=== PATIENT | male | born 1950 | race Caucasian/White ===

== ENCOUNTER → 2024-03-10 11:05 | Outpatient (REF) | payer MEDICARE, OTHER, SELFPAY ==
[2024-03-10 12:24] LABS: Urine Albumin 1+ (Neg - Trace); Urine Bilirubin Negative (Negative); Urine Character Very Cloudy (Clear); Urine Color Yellow; Urine Glucose Negative (Negative); Urine Ketone Negative (Negative); Urine Leukocyte 2+ (Negative); Urine Nitrite Negative (Negative); Urine Occult Blood 3+ (Negative); Urine Specific Gravity 1.015 (<1.030); Urine Urobilinogen Negative (Neg - 1+)
[2024-03-10 12:29] LABS: Hemoglobin 10.6 g/dL (13.0-18.0); Mean Corp Hgb Conc. 31.2 g/dL (33.0-37.0); Mean Corpuscular Hgb 26.9 pg (27.0-31.0); Mean Corpuscular Volume 86.3 fL (80.0-94.0); Mean Platelet Volume 11.6 fL (7.4-10.4); Platelet Count 136 10^3/uL (130-400); Red Blood Cell Count 3.94 10^6/uL (4.70-6.10); Red Cell Dist. Width 16.6 % (11.5-14.5); White Blood Cell Count 5.5 10^3/uL (4.8-10.8)
[2024-03-10 12:56] LABS: Urine Red Blood Cell 26-30 /HPF (0-2)
[2024-03-10 12:57] LABS: Urine Bacteria Moderate (Negative); Urine White Cell 50-60 /HPF (0-5)
[2024-03-10 15:10] LABS: ALT (SGPT) < 10 U/L (0-50); AST (SGOT) 17 U/L (17-59); Albumin 4.6 g/dl (3.5-5.0); Alkaline Phosphatase 99 U/L (38-126); Blood Urea Nitrogen 23 mg/dl (9-20); Calcium 9.1 mg/dl (8.4-10.2); Carbon Dioxide 23 mmol/L (22-30); Chloride 107 mmol/L (98-107); Glucose 137 mg/dl (70-99); HDL Cholesterol 24 mg/dl; LDL Cholesterol, Calculated 26 mg/dl; Potassium 4.4 mmol/L (3.5-5.1); Sodium 141 mmol/L (135-145); Total Bilirubin 1.2 mg/dl (0.2-1.3); Total Cholesterol 88 mg/dl (50-199); Total Protein 7.2 g/dl (6.3-8.2); Triglyceride 192 mg/dl (10-149); Very Low Density Lipoprotein 38 mg/dl (0-30)
[2024-03-11 09:08] LABS: Glycohemoglobin (HgbA1c) 5.2 % (4.0-5.6)
== END ==
LOC: REG 11:05
PROVIDERS: ATTENDING PHYSICIAN Specialist; FAMILY PHYSICIAN Family Medicine
DX: Z94.0 Kidney transplant status (principal); E11.21 Type 2 diabetes mellitus with diabetic nephropathy
CPT/HCPCS: 36415; 80053; 80061; 80197; 81003; 81015; 83036; 85027

== ENCOUNTER → 2024-04-02 09:37 | Outpatient (REF) | payer MEDICARE, OTHER, SELFPAY ==
[2024-04-02 12:30] LABS: Urine Albumin 1+ (Neg - Trace); Urine Bilirubin Negative (Negative); Urine Character Clear (Clear); Urine Color Yellow; Urine Glucose Negative (Negative); Urine Ketone Negative (Negative); Urine Leukocyte 1+ (Negative); Urine Nitrite Negative (Negative); Urine Occult Blood 3+ (Negative); Urine Specific Gravity 1.015 (<1.030); Urine Urobilinogen Negative (Neg - 1+)
[2024-04-02 12:32] LABS: Hematocrit 30.4 % (39.0-52.0); Hemoglobin 9.5 g/dL (13.0-18.0); Mean Corp Hgb Conc. 31.3 g/dL (33.0-37.0); Mean Corpuscular Hgb 26.5 pg (27.0-31.0); Mean Corpuscular Volume 84.9 fL (80.0-94.0); Mean Platelet Volume 11.9 fL (7.4-10.4); Platelet Count 150 10^3/uL (130-400); Red Blood Cell Count 3.58 10^6/uL (4.70-6.10); Red Cell Dist. Width 17.5 % (11.5-14.5); White Blood Cell Count 4.4 10^3/uL (4.8-10.8)
[2024-04-02 12:48] LABS: Urine Red Blood Cell 40-50 /HPF (0-2); Urine Squamous Cell 16-20 /LPF (Few)
[2024-04-02 12:49] LABS: Urine Bacteria Few (Negative)
[2024-04-02 12:55] LABS: Blood Urea Nitrogen 21 mg/dl (9-20); Calcium 9.1 mg/dl (8.4-10.2); Carbon Dioxide 25 mmol/L (22-30); Chloride 105 mmol/L (98-107); Glucose 136 mg/dl (70-99); Iron 83 ug/dl (49-181); Potassium 4.4 mmol/L (3.5-5.1); Sodium 140 mmol/L (135-145)
[2024-04-02 13:04] LABS: Percent Saturation 26 % (20-50); Total Iron Binding Capacity 314 ug/dl (261-462)
== END ==
LOC: HWRAD 09:37
PROVIDERS: ATTENDING PHYSICIAN Specialist; FAMILY PHYSICIAN Family Medicine
DX: I10 Essential (primary) hypertension (principal); E11.22 Type 2 diabetes mellitus with diabetic chronic kidney disease; N17.9 Acute kidney failure, unspecified; R31.9 Hematuria, unspecified; D69.6 Thrombocytopenia, unspecified
CPT/HCPCS: 36415; 76857; 80048; 81003; 81015; 82728; 83540; 83550; 85027

== ENCOUNTER → 2025-02-01 11:34 | Outpatient (REF) | payer MEDICARE, OTHER, SELFPAY | LOC: RAD 11:34 | PROVIDERS: ATTENDING PHYSICIAN Family Medicine | DX: H40.052 Ocular hypertension, left eye (principal) | CPT/HCPCS: 73030 ==

== ENCOUNTER 2025-02-12 15:13 | Inpatient (IN) | payer MEDICARE, OTHER, SELFPAY ==
[2025-02-12] VITALS (20 sets, daily range): BP systolic 84–137; BP diastolic 45–118; BMI 24.0; BMI 23.2
[2025-02-12] MEDS: CARDIZEM 10 MG IV (11:20)
[2025-02-12 11:33] LABS: Hematocrit 28.8 % (39.0-52.0); Hemoglobin 9.1 g/dL (13.0-18.0); Mean Corp Hgb Conc. 31.6 g/dL (33.0-37.0); Mean Corpuscular Volume 86.7 fL (80.0-94.0); Nucleated Red Blood Cells % 0 % (-); Platelet Count 125 10^3/uL (130-400); Red Cell Dist. Width 16.7 % (11.5-14.5)
[2025-02-12] MEDS: CARDIZEM 125 IV (11:33)
[2025-02-12 12:02] LABS: ALT (SGPT) < 10 U/L (0-50); AST (SGOT) 23 U/L (17-59); Albumin 4.6 g/dl (3.5-5.0); Alkaline Phosphatase 79 U/L (38-126); Blood Urea Nitrogen 25 mg/dl (9-20); Calcium 8.7 mg/dl (8.4-10.2); Carbon Dioxide 21 mmol/L (22-30); Chloride 111 mmol/L (98-107); Estimated Creatinine Clearance 39 ml/min; Glucose 232 mg/dl (70-99); Magnesium 2.1 mg/dl (1.6-2.3); Potassium 5.6 mmol/L (3.5-5.1); Sodium 140 mmol/L (135-145); Total Protein 7.3 g/dl (6.3-8.2); eGFR 39.50
[2025-02-12 12:26] LABS: Troponin I 2.530 ng/ml
[2025-02-12 12:31] LABS: TSH 3.05 uIU/ml (0.47-4.68)
--- NOTE | 2025-02-12 12:52 | ED.GENMED ---
History of Present Illness
General
Chief Complaint: Cardiac Symptoms
Source: patient and spouse
Exam Limitations: none
Time Seen by Provider: 02/12/25 10:48
History of Present Illness
History of Present Illness:
Note:
CHIEF COMPLAINT(S)
Pain in the left clavicle radiating down the arm to the chest and up the neck with an inability to alleviate the pain.
HISTORY OF PRESENT ILLNESS
The patient is a 74-year-old male with a complex history, including heart disease and kidney transplantation, presenting with pain in the left clavicle that radiates down the arm to the chest and up the neck. Symptoms have been chronic, with
shoulder pain persisting for a couple of years, but acutely worsened around midnight last night and have remained since. The patient describes the pain as extremely sharp, located under the scapula towards the spine, and it does not subside with
inactivity or rest. He has attempted to alleviate the pain with Tylenol without success. Historical episodes of similar pain involved chest discomfort and arm pain, once causing concern for a myocardial infarction, for which nitroglycerin was
administered without relief. 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
Clavicular pain is stated not to exacerbate with deep breaths. On presentation, the patients heart rate is notably elevated at 140 beats per minute. The patients cardiac history is significant, including five coronary artery bypass grafts and four
stents, with regular follow-up care by a ship's cook. He voices receiving recent laboratory work as part of his kidney transplant management, showing concerning creatinine levels and a hemoglobin of 8.6 g/dL. The patient is on numerous cardiac and
transplant-related medications, indicating a poorly controlled atrial fibrillation contributing to irregular heartbeat observed today. The patient denies any new symptoms of dyspnea or increased breathlessness.
EXTERNAL RECORDS REVIEWED
Patient has had recent laboratory work involving hemoglobin and creatinine levels due to kidney transplant history. Current reports indicate elevated creatinine, and the patients medications have been adjusted under human resources safety manager supervision.
CHRONIC MEDICAL CONDITIONS SIGNIFICANTLY AFFECTING CARE
1. Atrial fibrillation
2. Coronary artery disease
3. History of coronary artery bypass grafts and stents
4. Kidney transplant recipient
ALLERGIES
Penicillin (noted as a historic reaction)
MEDICATIONS
- Humalog
- Lantus
- Verapamil
- Apixaban
- Tacrolimus
- Gabapentin
- Carvedilol
- Pantoprazole
- Rosuvastatin
- Aspirin 81 mg
- Isosorbide
PHYSICAL EXAM
General: Alert, oriented, no acute distress.
Head and Eyes: Enucleated left eye, extraocular muscles intact in the right eye. Normocephalic, atraumatic.
Cardiovascular: Tachycardic, irregular heart rhythm.
Respiratory: Clear bilateral lung sounds, non-labored respirations.
Gastrointestinal: Abdomen non-distended.
Musculoskeletal: No tenderness on palpation near the scapular area.
Neurologic: Cranial nerves grossly intact.
Extremities: No edema, no cyanosis.
Psychiatric: Cooperative, appropriate mood and affect.
PROBLEM LIST
- Acute: Acute exacerbation of chronic shoulder/clavicular pain, tachycardia.
- Chronic: Atrial fibrillation, coronary artery disease, history of coronary interventions, kidney transplant status.
PLAN
1. Perform laboratory investigations including cardiac enzymes and kidney function tests.
2. Obtain a chest X-ray to rule out pulmonary causes of the pain, like a pneumothorax.
3. Administer intravenous medication (diltiazem) to control tachycardia and observe if symptomatology improves.
4. Considerations for cardiac monitoring and possible consultation with the patients ship's cook.
5. Evaluate current labs and medication levels, particularly tacrolimus, given transplant history.
DIFFERENTIAL DIAGNOSIS
The Differential Diagnosis includes, in no particular order and is not limited to:
1. Myocardial ischemia or infarction
2. Costochondritis
3. Musculoskeletal strain or tear
4. Pericarditis
5. Pulmonary embolism
6. Angina or atypical chest pain
7. Congestive heart failure exacerbation
8. Aortic dissection
9. Intercostal neuralgia
CARE-UPDATE
02/12/25 - 12:45
Noted troponin level at 2.5; will repeat EKG for further assessment.
CARE-UPDATE
02/12/25 - 12:53
Patient reports complete resolution of pain. Heart rate management is ongoing, currently stabilized with the assistance of an external cardio drip. Consultation with cardiology is in progress to further evaluate and manage the cardiac condition.
EKG
My independent EKG interpretation is:
- Rhythm: Atrial fibrillation with rapid ventricular response (RVR)
- Heart Rate: Tachycardic at 135 bpm
- ST Changes: ST depression in the lateral leads
- Conduction: Non-specific intraventricular conduction delay
- [place]: Left axis deviation
Disposition:
SUMMARY OF ENCOUNTER
The patient, a 74-year-old male with an extensive cardiac history and a history of kidney transplantation, presented with worsening back and chest pain. On arrival, he was tachycardic and noted to be in atrial fibrillation. He reported taking his
last dose of apixaban at home. His symptoms improved with a diltiazem drip which also helped in controlling his heart rate. The patient was found to be asymptomatic upon reassessment. His comprehensive cardiac history includes significant coronary
artery disease with past interventions, including stenting of the radial artery graft. A previously existing recommendation was for triple therapy with aspirin, clopidogrel, and apixaban. A cardiology consultation was sought for further
anticoagulation management.
DISPOSITION
Admit
ASSESSMENT
The patients symptoms were likely due to atrial fibrillation with a rapid ventricular response, exacerbated by his underlying coronary artery disease and recent initiation of treatment for an atrial fibrillation disorder.
EMERGENCY TREATMENTS ADMINISTERED
Diltiazem drip was administered to control the heart rate.
MANAGEMENT OF THE PATIENTS CARE WAS DISCUSSED WITH
The patients case was discussed with a ship's cook to evaluate the need for further anticoagulation and a hospitalist to arrange admission.
REASSESSMENT
The patient reported complete resolution of symptoms, and heart rate control was successfully achieved with a diltiazem drip.
PLAN
The patient will be admitted for further evaluation and management of his atrial fibrillation and to ensure stable cardiac function, considering his complex medical history.
INDEPENDENT REVIEW OF LABS AND INTERPRETATION OF TESTS
- My independent review of cardiac catheterization records from November 2022 shows [place] triple vessel disease with successful stenting of the radial artery graft at OM2.
- My independent EKG interpretation is atrial fibrillation with rapid ventricular response; tachycardic at 135 bpm, ST depression in lateral leads, with non-specific intraventricular conduction delay and left axis deviation.
PATIENT EDUCATION AND COUNSELING
The patient was informed about the nature of his condition, the role of the medications administered, and the need for close monitoring of his cardiac status.
MEDICATION RECONCILIATION
- Apixaban, taken at home.
- Diltiazem drip administered in the emergency department.
MEDICAL DECISION MAKING
- Number and Complexity of Problems Addressed: Chronic conditions affecting care including atrial fibrillation, coronary artery disease, history of coronary interventions, and kidney transplant status. Differential diagnosis included myocardial
ischemia or infarction, costochondritis, musculoskeletal strain or tear, pericarditis, angina or atypical chest pain, congestive heart failure exacerbation, aortic dissection, and intercostal neuralgia.
- Data:
Category 1
- External record reviewed regarding previous cardiac catheterization for coronary artery disease.
- My independent interpretation of the EKG, showing atrial fibrillation with rapid ventricular response.
Category 3
- Discussion of management with a ship's cook and hospitalist for admission and anticoagulation evaluation.
RISK
Given the complexities of the patients cardiac history, ongoing anticoagulation therapy, and recent cardiac intervention, the risk is high. However, with resolving symptoms and stable conditions, the plan for admission is prudent to ensure
comprehensive management.
DIAGNOSIS
- Atrial fibrillation with rapid ventricular response (I48.91)
- Coronary artery disease with history of interventions (I25.10)
- Recent initiation of treatment for atrial fibrillation disorder (Z79.02)
Past History
Past History
ED Past Medical History: CAD, Hypercholesterolemia, IDDM, Renal failure, Hypothyroidism and Other (Kidney transplant)
ED Past Surgical History: Appendectomy, Cardiac, Urological (Kidney transplant) and Other (Left eye surgery, AV fistula)
Social History
Tobacco: Non-smoker
Living: with family
Phy Exam
Physical Exam
Physical Exam:
.
Course
Orders/Labs/Results
Orders:
Orders
02/12/25 10:33
Electrocardiogram (*1) Urgent
Reason for Study: Bradycardia / Tachycardia
02/12/25 10:34
EKG- Treatment ONCE
02/12/25 11:02
Diltiazem 125 mg/125 ml Nss [Cardizem] 125 mg in 125 ml IV NOW
Initial dose in mg/hr, then titrate:: 5
Titrate to keep:: Heart rate 80-100 bpm
Titrate by mg/hr:: 5 mg/hr
Frequency of titrations (minutes):: 15
Maximum dose in mg/hr:: 15
Diltiazem HCl [Cardizem] 10 mg IV NOW STA
CR Chest - 2 Views Urgent
Comment:
Reason For Exam: L back pain/CP
02/12/25 11:16
Complete Blood Count/With Diff Urgent
Comprehensive Metabolic Panel Urgent
Magnesium Urgent
TSH Urgent
Troponin I Urgent
02/12/25 12:43
Electrocardiogram (*1) Urgent
Reason for Study: Chest Pain
EKG- Treatment ONCE
Abnormal Lab Results
02/12/25
11:16
WBC 4.4 L 10^3/uL
(4.8-10.8)
RBC 3.32 L 10^6/uL
(4.70-6.10)
Hgb 9.1 L g/dL
(13.0-18.0)
Hct 28.8 L %
(39.0-52.0)
MCHC 31.6 L g/dL
(33.0-37.0)
RDW 16.7 H %
(11.5-14.5)
Plt Count 125 L 10^3/uL
(130-400)
Monocytes % 11.8 H %
(1.7-9.3)
Potassium 5.6 H mmol/L
(3.5-5.1)
Chloride 111 H mmol/L
(98-107)
Carbon Dioxide 21 L mmol/L
(22-30)
BUN 25 H mg/dl
(9-20)
Creatinine 1.8 H mg/dL
(0.7-1.3)
Glucose 232 H mg/dl
(70-99)
Troponin I 2.530 H* ng/ml
02/12/25 11:16
02/12/25 11:16
Vital Signs
Initial and Last Documented VS:
Initial Vital Signs
Temp Pulse Resp BP Pulse Ox
98.8 F 138 16 120/64 98
02/12/25 10:31 02/12/25 10:31 02/12/25 10:31 02/12/25 10:31 02/12/25 10:31
Last Documented Vital Signs
Temp Pulse Resp BP Pulse Ox
98.8 F 88 14 101/51 98
02/12/25 10:31 02/12/25 12:45 02/12/25 12:45 02/12/25 12:30 02/12/25 12:45
*Pulse Oximetry
SaO2: 98
Oxygen Mode of Delivery: Room air
Patient hypoxic: no
*Critical Care Note
Total Time (30-74mins, 75-104mins- exclusive of procedures): 40 minutes
Data Reviewed
Source: patient and spouse
ED Attending Note
-
Portions of this chart may have been created with voice recognition software.� Occasional wrong word or��sound alike� substitutions may have occurred due to the inherent limitations of voice recognition software.
Discharge Plan
Departure
Patient Disposition: Admit
Date of Disposition: 02/12/25
Time of Disposition: 12:52
Admit to: Telemetry
Presentation/result/management discussed w/ accepting MD/DO: Hospitalist
Discharge Problem:
Acute non-ST elevation myocardial infarction (NSTEMI), Atrial fibrillation with rapid ventricular response, Chronic kidney disease
Prescriptions:
No Action
dorzolamide-timolol 22.3-6.8 mg/mL Drops
1 drp LEFT EYE BID
insulin lispro [Humalog U-100 Insulin] 100 unit/mL Solution
1 sliding scale dose SC AC
rosuvastatin 20 mg Tablet
20 mg PO DAILY
Dulera 200-5 mcg/actuation Hfa Aerosol Inhaler
2 puff INHALATION R BIDPRN PRN (Reason: cough)
Eliquis 5 mg Tablet
5 mg PO BID
PreserVision AREDS-2 250-90-40-1 mg Tablet,Chewable
1 tab PO BID
tacrolimus [Prograf] 1 mg Capsule
1 mg PO Q12H Qty: 0
gabapentin 300 mg capsule
300 mg PO TID
gabapentin 600 mg Tablet
300 mg PO HSPRN PRN (Reason: mild pain)
aspirin 81 mg Tablet
81 mg PO DAILY
pantoprazole [pantoprazole] 40 mg tablet,delayed release (DR/EC)
40 mg PO DAILY Qty: 90 10RF
acetaminophen [Tylenol] 325 mg Tablet
975 mg PO DAILYPRN PRN (Reason: mild pain)
carvedilol [Coreg] 6.25 mg Tablet
6.25 mg PO BID
cetirizine [Zyrtec] 10 mg Tablet
10 mg PO DAILY
isosorbide mononitrate [Imdur] 30 mg Tablet Extended Release 24 Hr
30 mg PO DAILY
prednisolone acetate 1 % Drops,Suspension
3 drp LEFT EYE TID
levothyroxine [Synthroid] 50 mcg Tablet
50 mcg PO HS
zolpidem [Ambien] 10 mg Tablet
10 mg PO HSPRN PRN (Reason: sleep)
mycophenolate sodium 180 mg tablet,delayed release (DR/EC)
540 mg PO BID
insulin glargine [Lantus Solostar U-100 Insulin] 100 unit/mL (3 mL) Insulin Pen
2 unit SC HS
Referrals:
Alphonso Sheffield MD [Family Provider, Family Practice]
Interventions
Interventions:
*Risk Screen - Suicide Last Done: 02/12/25 10:31
*General Assessment Last Done: 02/12/25 11:17
*Neglect/Abuse Screening Last Done: 02/12/25 10:31
*ED- Fall Risk Assessment Last Done: 02/12/25 11:17
ED- Cardiac Assessment Last Done: 02/12/25 11:17
ED- Pulmonary Assessment Last Done: 02/12/25 11:52
Discharge Date and Time
Print Language: MALAY
--- NOTE | 2025-02-12 12:55 | CON.CAR ---
Addendum entered and electronically signed by Kirk Eason MD 02/12/25 15:41:
Patient seen and examined in collaboration with WINK CUTTER OPERATOR; agree with below.
- 74-year-old male with coronary artery disease status-post remote CABG (2000), radial artery graft stent (11/2022), paroxysmal atrial fibrillation (on Eliquis), hypertension, hyperlipidemia, diabetes, and renal transplant/CKD (2017) presenting with
chest and left shoulder pain. Initial set of troponin was 2.53, concerning for an NSTEMI.
- The patient will ultimately need to undergo cardiac catheterization--timing yet to be determined; he is currently chest pain-free.
- The patient took his typical dose of Eliquis this morning; will hold off on starting heparin for now--plan to start this evening, but will initiate heparin drip sooner, if significant increase in troponin or if patient develops recurrent anginal
symptoms.
- Consult nephrology for renal dysfunction and electrolyte abnormalities; renal status ideally should be tuned up prior to cardiac catheterization.
- Will obtain an echocardiogram today.
- quality assurance monitor.
- Will follow.
Original Note:
Consultation
Consultation Request
Date/Time Consultation Requested: 02/12/25 1253
Date/Time Consultation Performed: 02/12/25 1256
Requesting Provider: Dr. Mitchell
Performing Provider: Sheila TUCEKR for Dr. Eason
Reason for Consultation: abnormal troponin, AFIB RVR, CP
Medical History
-
Chief Complaint: chest discomfort
History of Present Illness:
74 y/o male with CAD with hx CABG 2000 and stenting radial artery graft 11/2022, PAF on Eliquis, hypertension, dyslipidemia, DM, renal transplant 2017, and CKD3b (Dr. Reyes), who is here for left chest and shoulder pain that started last night around
midnight. Chest felt like dull ache, shoulder felt like stabbing. He was in AFIB with RVR on arrival. His symptoms resolved with rate control on IV diltiazem. Troponin is 2.53. He has no CP at the time of my assessment. He takes daily aspirin and
took it already this AM and also took Eliquis this AM. He is in no distress and at bedside.
Past Medical History
Past Medical History: Arrhythmias, CAD, HTN, Hypercholesterolemia, NIDDM, Renal Failure and Other (as above)
Social History
Tobacco: Former Smoker
Personal:
Living: With Family
Family History
Family History: Reviewed & Not Pertinent
Allergies / Home Medications
Allergy/AdvReac Type Severity Reaction Status Date / Time
Penicillins Allergy Hives A Verified 02/12/25 10:33
TEENAGER
pollen extracts AdvReac Intermediate Nasal Verified 02/12/25 10:33
congestion
- seasonal
�Medication �Instructions �Recorded �Confirmed �Type
apixaban 5 mg tablet (Eliquis) 5 mg PO BID Blood clot 03/25/22 02/12/25 History
prevention/tx
dorzolamide 22.3 mg-timolol 6.8 1 drp LEFT EYE BID Eye condition 03/25/22 02/12/25 History
mg/mL eye drops
insulin lispro 100 unit/mL 1 sliding scale dose SC AC Diabetes 03/25/22 02/12/25 History
subcutaneous solution (Humalog
U-100 Insulin)
mometasone-formoterol HFA 200 2 puff inhalation R BIDPRN PRN 03/25/22 02/12/25 History
mcg-5 mcg/actuation aerosol cough
inhaler (Dulera)
rosuvastatin 20 mg tablet 20 mg PO DAILY High cholesterol 03/25/22 02/12/25 History
vit C 250 mg-E 90 mg-zinc 40 1 tab PO BID Supplement 03/25/22 02/12/25 History
mg-copper 1 [id number] chew
tablet (PreserVision AREDS-2)
tacrolimus 1 mg capsule, 1 mg PO Q12H ##0 03/30/22 02/12/25 History
immediate-release (Prograf)
aspirin 81 mg tablet 81 mg PO DAILY 11/13/22 02/12/25 History
gabapentin 300 mg capsule 300 mg PO TID 11/13/22 02/12/25 History
gabapentin 600 mg tablet 300 mg PO HSPRN PRN mild pain 11/13/22 02/12/25 History
pantoprazole 40 mg tablet,delayed 40 mg PO DAILY #90 tabs 11/13/22 02/12/25 Rx
release
acetaminophen 325 mg tablet 975 mg PO DAILYPRN PRN mild pain 02/12/25 02/12/25 History
(Tylenol)
carvedilol 6.25 mg tablet (Coreg) 6.25 mg PO BID 02/12/25 02/12/25 History
cetirizine 10 mg tablet (Zyrtec) 10 mg PO DAILY 02/12/25 02/12/25 History
insulin glargine 100 unit/mL (3 2 unit SC HS 02/12/25 02/12/25 History
mL) subcutaneous pen (Lantus
Solostar U-100 Insulin)
isosorbide mononitrate 30 mg 30 mg PO DAILY 02/12/25 02/12/25 History
tablet,extended release 24 hr
levothyroxine 50 mcg tablet 50 mcg PO HS 02/12/25 02/12/25 History
(Synthroid)
mycophenolate sodium 180 mg 540 mg PO BID 02/12/25 02/12/25 History
tablet,delayed release
prednisolone acetate 1 % eye 3 drp LEFT EYE TID 02/12/25 02/12/25 History
drops,suspension
zolpidem 10 mg tablet (Ambien) 10 mg PO HSPRN PRN sleep 02/12/25 02/12/25 History
Review of Systems
-
History Source: Patient
All other systems: Negative unless noted
Cardiac: Chest Pain
Musculoskeletal: Other (shoulder pain)
Physical Exam
Vital Signs
Temp Pulse Resp BP Pulse Ox
98.8 F 88 14 101/51 98
02/12/25 10:31 02/12/25 12:45 02/12/25 12:45 02/12/25 12:30 02/12/25 12:45
Lab Results
02/12/25 11:16
02/12/25 11:16
Troponin I 2.530 ng/ml H* 02/12/25 11:16
Physical Exam
General: Well Developed and Well Nourished
HEENT: Normocephalic and Anicteric
Respiratory: Clear and Non Labored Respirations
Cardiac: Irregular Rhythm
Musculoskeletal: No Edema
Skin: Warm and Dry
Neuro: AO x 3
Psych: Calm
Impression / Plan
-
NSTEMI:
-this diagnosis is threat to life
-known CAD with CABG and stenting
-trend trops to peak, obtain echo
-CP free at present
-start heparin tonight- this requires intensive monitoring. Hold Eliquis.
-continue ASA, statin, BB
-plan for cath on Saturday, nephro consult
PAF:
-came in with AFIB with RVR
-agree with IV diltiazem, which requires intensive monitoring
-Hold Eliquis and start heparin tonight
CKD, hx renal transplant, hyperkalemia:
-nephro consulted
Data Reviewed
-
EKG: Tracing Personally Visualized and interpreted (AFIB 96 BPM)
Radiology: Report Reviewed by me (CXR: Stable mild blunting of the left lateral costophrenic angle, which is likely mild chronic pleural thickening. The lungs appear clear. Cardiac silhouette and vascular markings appear within normal limits.)
Medical Tests (Nuc Med, Echo etc): Report Reviewed by me (Cath 11/13/22: [place] triple-vessel occlusion with patent CONNOLLY-LAD, [id number], patent but diseased radial-OM2 and occluded SVG-diagonal bypass grafts. Successful stenting of multisegment
high-grade disease in radial artery graft to OM 2 with placement of total four drug-eluting stents.)
Labs: Labs Reviewed by me
Scores
GAUTAM for NSTEMI
Age >/= 65: Yes
>/=3 CAD risk factors-HTN,High Chol,Fam hx CAD,DM,Smoker: Yes
Known CAD (stenosis >/=50%): Yes
ASA use in past 7 days: Yes
Severe angina (>/= 2 episodes in 24 hrs): No
EKG ST Changes >/= 0.5mm: Yes
Positive cardiac marker: Yes
Score: 6
Risk at 14 days-mortality, new/recurrent PA, severe ischemia: High Risk- 41% Risk at 14 days- all cause mortality, new or recurrent PA, or severe recurrent ischemia requiring urgent revascularization
--- NOTE | 2025-02-12 13:10 | HPS.HSE ---
Family Physician
-
Family Physician: Alphonso Sheffield
Chief Complaint
-
left shoulder blade sharp in nature unable to move also with a dull ache in his left antecubital left forearm left chest into his left side of his neck
History of Present Illness
74-year-old male complaining of waking up at 12 AM with pain in his left shoulder blade sharp in nature unable to move also with a dull ache in his left antecubital left forearm left chest into his left side of his neck he states the pain was so bad
he had his bring him to the ER for evaluation on arrival he was noted to be in rapid A-fib with RVR heart rate 146 bpm he was given IV Cardizem drip which controlled his heart rate to 85 he states his pain dissipated however his troponin was
elevated at 2.53. He recalls having chest pain approximately 1 month ago he took 2 nitro without any relief he has had episodic left shoulder pain for months random in nature. He had history of CABG x 5 vessel in 2000 he reports taking his aspirin
81 mg today and Eliquis 5 mg this morning. He denies headache, blurred vision, dizziness, sore throat, fever, chills, shortness of breath, cough, abdominal pain, nausea, vomiting, diarrhea, urinary symptoms.
The patient has past medical history of CAD/CABG x 5 vessel 2000( CONNOLLY-LAD, [id number],), drug-eluting stent OM 2 11/13/2022, paroxysmal A-fib, HTN, HLD, DM2, diabetic neuropathy bilateral feet, renal transplant 2017, left arm AV fistula, chronic
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
Medical History
Past Medical History
Past Medical History: Reports Other
Additional Past Medical History:
CAD/CABG x 5 vessel 2000( CONNOLLY-LAD, [id number],)
drug-eluting stent OM 2 11/13/2022
paroxysmal A-fib
HTN
HLD
DM2
diabetic neuropathy bilateral feet
Renal transplant 2017
Right upper extremity AV fistula working, right lower extremity AV fistula not working
chronic anemia
GERD
hepatitis B
COPD
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
Past Surgical History: Reports Other
Additional Past Surgical History:
CABG x 5 vessel 2000
Detached retina repair left eye with chronic blindness
AV fistula 12/23/2023
Appendectomy
Kidney transplant 2016 [facility]
Social History
Tobacco: Non-smoker
Alcohol: None
Drug: None
Personal:
Living: With Family ( Fanny)
Employment: Retired
Family History
Family History: Other (Patient is adopted however did find out that mother had history of kidney disease mother side uncles CAD)
Allergies / Home Medications
Allergies reflects when Allergies were last updated in [employer].
Home Medications with original date entered in [employer]
Allergy/Medication List:
Allergies
Allergy/AdvReac Type Severity Reaction Status Date / Time
Penicillins Allergy Hives A Verified 02/12/25 10:33
TEENAGER
pollen extracts AdvReac Intermediate Nasal Verified 02/12/25 10:33
congestion
- seasonal
Home Medications
apixaban 5 mg tablet (Eliquis) 5 mg PO BID Blood clot prevention/tx 03/25/22
dorzolamide 22.3 mg-timolol 6.8 mg/mL eye drops 1 drp LEFT EYE BID Eye condition 03/25/22
insulin lispro 100 unit/mL subcutaneous solution (Humalog U-100 Insulin) 1 sliding scale dose SC AC Diabetes 03/25/22
mometasone-formoterol HFA 200 mcg-5 mcg/actuation aerosol inhaler (Dulera) 2 puff inhalation R BIDPRN PRN cough 03/25/22
rosuvastatin 20 mg tablet 20 mg PO DAILY High cholesterol 03/25/22
vit C 250 mg-E 90 mg-zinc 40 mg-copper 1 [id number] chew tablet (PreserVision AREDS-2) 1 tab PO BID Supplement 03/25/22
tacrolimus 1 mg capsule, immediate-release (Prograf) 1 mg PO Q12H ##0 03/30/22
aspirin 81 mg tablet 81 mg PO DAILY 11/13/22
gabapentin 300 mg capsule 300 mg PO TID 11/13/22
gabapentin 600 mg tablet 300 mg PO HSPRN PRN mild pain 11/13/22
pantoprazole 40 mg tablet,delayed release 40 mg PO DAILY #90 tabs 11/13/22
acetaminophen 325 mg tablet (Tylenol) 975 mg PO DAILYPRN PRN mild pain 02/12/25
carvedilol 6.25 mg tablet (Coreg) 6.25 mg PO BID 02/12/25
cetirizine 10 mg tablet (Zyrtec) 10 mg PO DAILY 02/12/25
insulin glargine 100 unit/mL (3 mL) subcutaneous pen (Lantus Solostar U-100 Insulin) 2 unit SC HS 02/12/25
isosorbide mononitrate 30 mg tablet,extended release 24 hr 30 mg PO DAILY 02/12/25
levothyroxine 50 mcg tablet (Synthroid) 50 mcg PO HS 02/12/25
mycophenolate sodium 180 mg tablet,delayed release 540 mg PO BID 02/12/25
prednisolone acetate 1 % eye drops,suspension 3 drp LEFT EYE TID 02/12/25
zolpidem 10 mg tablet (Ambien) 10 mg PO HSPRN PRN sleep 02/12/25
Review of Systems
-
History Source: Patient and Family ( at bedside)
A 12 point ROS was completed and negative except as noted: Yes
Constitutional: Denies Fever or Chills
EENT: Denies Sore Throat or Runny Nose
Respiratory: Denies Cough or Trouble Breathing
Cardiac: Reports Chest Pain (Left upper chest wall); Denies Diaphoresis, Palpitations or Syncope
Abdomen/GI: Denies Abdominal Pain, Nausea, Vomiting, Diarrhea, Constipated, Bloody Stools or Black Stools
: Denies Dysuria, Frequency, Flank Pain, Incontinence, Difficulty Voiding or Urgency
Musculoskeletal: Reports Other (Left posterior shoulder pain, left in acute pain left forearm pain); Denies Joint Pain or Joint Swelling
Skin: Denies Itching or Rash
Neurological: Denies Dizzy, Headache or Weakness
Endocrine: Reports No Symptoms
Hematologic/Lymphatic: Reports No Symptoms
Psych: Reports Calm
Physical Exam
Vital Signs
Vital Signs
Temp Pulse Resp BP Pulse Ox
98.8 F 88 14 101/51 98
02/12/25 10:31 02/12/25 12:45 02/12/25 12:45 02/12/25 12:30 02/12/25 12:59
Physical Exam
General: Comfortable and Conversant; No Pain, Fever or Chills
HEENT: NormoCephalic, Anicteric, Moist mucous membranes, PERRLA (Right eye, left eye blind from retinal detachment), [place] Conjunctivae, No Ptosis and Neck Nontender
Respiratory: Clear; No Wheezes, Rales or Rhonchi
Cardiac: S1/S2 and Regular Rhythm; No Peripheral Edema
Breast: Deferred by me
GI: Soft, Non Tender, Non Distended, Normal Bowel Sounds and No Hepatosplenomegaly
Rectal: Deferred by Provider
Genito-urinary: Deferred by me
Musculoskeletal: No Clubbing, No Cyanosis and No Edema
Skin: Warm and Dry; No Rash
Neuro: AO x 3, No Motor Deficits, Nonfocal/grossly intact, Cranial Nerves Intact and No Sensory Deficits; No Slurred Speech, Facial Droop, Tremors or Sedated
Psych: Calm
Laboratory Results
-
02/12/25 11:16
02/12/25 11:16
Laboratory Results
Total Bilirubin 1.0 mg/dl (0.2-1.3) 02/12/25 11:16
AST 23 U/L (17-59) 02/12/25 11:16
ALT < 10 U/L (0-50) 02/12/25 11:16
Alkaline Phosphatase 79 U/L (38-126) 02/12/25 11:16
Troponin I 2.530 ng/ml H* 02/12/25 11:16
Data Reviewed
-
Diagnostic Radiology: Report Reviewed by me
Lab Data: Labs Reviewed by me
Impression/Plan
-
Impression/plan:
Admit to IVU
#A-fib with RVR/paroxysmal A-fib
-IV Cardizem drip
- Eliquis 5 mg twice daily patient took a.m. dose today 02/12/2025
-Will convert to IV heparin drip with bolus at 8 PM as likely plan for cardiac cath on 02/15/2025
- Consult cardiology CBC cardiology seen at bedside
- TSH normal 3.05
CXR: Stable mild blunting of the left lateral costophrenic angle likely mild chronic pleural thickening. Lungs appear clear
# NSTEMI versus ischemic demand from A-fib with RVR
#CAD/stent OM 2 drug-eluting 11/13/2022
#CABG x 5 vessel 2001
-Continue aspirin 81 mg daily, Coreg 6.25 mg twice daily, Imdur 30 mg daily
-Troponin 2.530 will trend
-Follow EKGs
- Eliquis 5 mg twice daily patient took a.m. dose today 02/12/2025
-Will convert to IV heparin drip with bolus this evening at 6 PM as likely plan for cardiac cath on 02/15/2025 unless patient becomes unstable
- Check 2D echo
Cardiac cath 11/13/2022:
1. [place] triple-vessel occlusion with patent CONNOLLY-LAD, [id number], patent but diseased radial-OM2 and occluded SVG-diagonal bypass grafts
2: Successful stenting of multisegment high-grade disease in radial artery graft to OM 2 with placement of total four drug-eluting stents as described above
3. Recommend triple therapy (aspirin, Plavix, Eliquis) for 1 week then Eliquis and Plavix alone for the next 12 months. After that would substitute aspirin in place of Plavix.
I do not recommend complete discontinuation of antiplatelet therapy in this patient given the length of stents needed to treat this severely diseased radial artery graft
#Acute hyperkalemia
K5.6
- Follow BMP
#Renal transplant 2017 with CKD 3B
#Right upper extremity AV fistula working, right lower extremity AV fistula not working
chronic anemia
Creat 1.8 appears baseline, CrCl 39, GFR 39
-Continue mycophenolate 540 mg p.o. twice daily, Prograf 1 mg every 12 hours
-Consult nephrology Dr. Reyes aware
#DM2 with diabetic neuropathy
-Accu-Cheks with SSI, check HgbA1c
-Continue Lantus 2 units subcu at bedtime, sliding scale low with meals
-Continue gabapentin 300 mg 3 times daily and 300 mg at bedtime as needed
#COPD�no acute exacerbation
-Continue Dulera inhaler
#Hypothyroidism
TSH normal
-Continue levothyroxine 50 mcg p.o. at bedtime
#GERD
-Continue Protonix 40 mg daily
#HLD
-Continue rosuvastatin 20 mg daily, check lipid profile
'Hepatitis B hx
#Insomnia
-Continue Ambien 10 mg at bedtime as needed
#History of left eye detached retina chronic blindness
-Continue eyedrops
DVT prophylaxis
Continue FIXTURE RELAMPER Eliquis
Full code
--- NOTE | 2025-02-12 13:48 | W.PN.UPDATE ---
Update Note
Progress Note Update
I have seen and and examined the patient. The BUSINESS PROCESS ARCHITECT or PA's note was reviewed and I agree with the note.
74-year-old male with CAD status post CABG in 2000 and stenting in 2022, PAF on eliquis, HTN, DM2 on insulin, renal transplant 2016, presents with acute chest pain, that woke him from sleep, described as heavy, 10 out of 10 pain, radiating from left
shoulder into left arm and left chest. About 3 weeks ago he experienced similar chest pain that was not relieved with oral nitro but dissipated after about 2 hours on its own. He has experienced chronic left shoulder pain by the scapula for many
months and has felt this was related to overuse injury from softball. He notes he has had poor oral intake for the last 2 weeks, and his sugars have been on the low side such that he is stopped taking his daily Lantus for the last week, and only
using his short-acting insulin about once a day per sliding scale. He notes that he had recent blood work with his hris specialist and was found to have an elevated Tac level and elevated creatinine.
He was found to have A-fib with RVR to the 140s and was treated with IV Cardizem, with relief of the tachycardia and the chest pain. His heart rate is currently in the 80s to low 90s. His BP was 130/118 on admit and is now 92/51 while on the
Cardizem.
On exam, pt is well appearing in NAD, L pupil opaque (blindness), MMM, heart rate tachycardic, irregular, no murmur, Lungs CTAB, abd soft/NT/ND/NABS, BLE no edema.
Labs and imaging reviewed by me. Elevated troponin to 2.53, elevated creatinine to 1.8, elevated potassium to 5.6, hemoglobin 9.1, clear chest x-ray
Assessment and plan:
A-fib with RVR - his rate is now controlled on IV Cardizem drip. Cardiology has been consulted and they are at this time recommending to continue the drip. Hold parameters for low BP.
NSTEMI - Chest pain is resolved with rate control. Heparin drip to start tonight, with a bolus per cardiology, hold Eliquis. Cardiology consulted, plan for cath on Saturday.
CKD status post renal transplant�patient with acute on chronically elevated creatinine, will give gentle fluids overnight. Consulted nephrology. Continue immunosuppression for tonight, nephrology to adjust, confirm if elevated Tac level.
Acute hyperkalemia�gentle fluids, nephrology aware, will monitor BMP.
Diabetes 2 -patient reports not taking his Lantus for the last week. Monitor his blood glucose. As mildly elevated will continue with low-dose Lantus and lispro on sliding scale.
Comment:
[2025-02-12 14:30] LABS: APTT 42.3 Sec (23.4-35.0)
[2025-02-12 15:05] LABS: Troponin I 6.150 ng/ml
[2025-02-12] MEDS: NSS 1000 IV ×2 (15:08→18:20)
[2025-02-12] MEDS: HEPARIN 4000 UNITS IV (16:26)
[2025-02-12] MEDS: HEPARIN 25000 UNITS/250 ML IV (16:27)
--- NOTE | 2025-02-12 16:52 | W.CON.NEPH ---
Consultation
-
Date/Time Consultation Requested: 02/12/25 1332
Date/Time Consultation Performed: 02/12/25 1715
Requesting Provider: Kimber Baker
Performing Provider: Miya Cruz
Reason for Consultation: CKD, hyperkalemia. h/o KTP
Medical History
-
Chief Complaint: cp
History of Present Illness:
74-year-old male with CAD status post CABG in 2000 and stenting in 2022, PAF on eliquis, HTN on coreg, DM2 on insulin, renal transplant 2017(Diseased donor) baseline cr 1.5-1.7 IS maintains on prograf, MMF, presents with acute chest pain, that woke
him from sleep and radiating from left shoulder into left arm and left chest. About 3 weeks ago he experienced similar chest pain that was not relieved with oral nitro but dissipated after about 2 hours on its own. His po intake is low for last
1week and feels tired. He is now concern to have NSTEMI, troponin high from 2.5 to 6.1. He also has Afib with RVR On cardizem gtt. Plan is start heparin gtt and eventual cath. Nephrology consulted for CKD with potential need of LHC. Today his cr
1.8, k 5.6.
Recently his Tac was changed from liquid to tab for easy regimen in last 1year however recent level was at 19, cr 1.8 on 02/06, dose reduced to 2mg BID. Since then he was asked to go back to liquid Tac which he id not get chance to do. He had tac
level done this morning.
No active CP or sob currently. No active nausea, vominting. No abd pain or dysuria.
Past Medical History
CAD/CABG x 5 vessel 2000( CONNOLLY-LAD, [id number],)
drug-eluting stent OM 2 11/13/2022
paroxysmal A-fib
HTN
HLD
DM2
diabetic neuropathy bilateral feet
Renal transplant 2016
Right upper extremity AV fistula working, right lower extremity AV fistula not working
chronic anemia
GERD
hepatitis B
COPD
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
Past Surgical History: Other (CABG x 5 vessel 2001 Detached retina repair left eye with chronic blindness AV fistula 12/23/2023 Appendectomy Kidney transplant 2017 [facility])
Social History
Tobacco: Non-Smoker
Alcohol: None
Drug: None
Personal:
Living: With Family
Family History
Patient is adopted however did find out that mother had history of kidney disease mother side uncles CAD
Allergies / Home Medications
Allergy/AdvReac Type Severity Reaction Status Date / Time
Penicillins Allergy Hives A Verified 02/12/25 10:33
TEENAGER
pollen extracts AdvReac Intermediate Nasal Verified 02/12/25 10:33
congestion
- seasonal
�Medication �Instructions �Recorded �Confirmed �Type
apixaban 5 mg tablet (Eliquis) 5 mg PO BID Blood clot 03/25/22 02/12/25 History
prevention/tx
dorzolamide 22.3 mg-timolol 6.8 1 drp LEFT EYE BID Eye condition 03/25/22 02/12/25 History
mg/mL eye drops
insulin lispro 100 unit/mL 1 sliding scale dose SC AC Diabetes 03/25/22 02/12/25 History
subcutaneous solution (Humalog
U-100 Insulin)
mometasone-formoterol HFA 200 2 puff inhalation R BIDPRN PRN 03/25/22 02/12/25 History
mcg-5 mcg/actuation aerosol cough
inhaler (Dulera)
rosuvastatin 20 mg tablet 20 mg PO DAILY High cholesterol 03/25/22 02/12/25 History
vit C 250 mg-E 90 mg-zinc 40 1 tab PO BID Supplement 03/25/22 02/12/25 History
mg-copper 1 [id number] chew
tablet (PreserVision AREDS-2)
tacrolimus 1 mg capsule, 1 mg PO Q12H ##0 03/30/22 02/12/25 History
immediate-release (Prograf)
aspirin 81 mg tablet 81 mg PO DAILY 11/13/22 02/12/25 History
gabapentin 300 mg capsule 300 mg PO TID 11/13/22 02/12/25 History
gabapentin 600 mg tablet 300 mg PO HSPRN PRN mild pain 11/13/22 02/12/25 History
pantoprazole 40 mg tablet,delayed 40 mg PO DAILY #90 tabs 11/13/22 02/12/25 Rx
release
acetaminophen 325 mg tablet 975 mg PO DAILYPRN PRN mild pain 02/12/25 02/12/25 History
(Tylenol)
carvedilol 6.25 mg tablet (Coreg) 6.25 mg PO BID 02/12/25 02/12/25 History
cetirizine 10 mg tablet (Zyrtec) 10 mg PO DAILY 02/12/25 02/12/25 History
insulin glargine 100 unit/mL (3 2 unit SC HS 02/12/25 02/12/25 History
mL) subcutaneous pen (Lantus
Solostar U-100 Insulin)
isosorbide mononitrate 30 mg 30 mg PO DAILY 02/12/25 02/12/25 History
tablet,extended release 24 hr
levothyroxine 50 mcg tablet 50 mcg PO HS 02/12/25 02/12/25 History
(Synthroid)
mycophenolate sodium 180 mg 540 mg PO BID 02/12/25 02/12/25 History
tablet,delayed release
prednisolone acetate 1 % eye 3 drp LEFT EYE TID 02/12/25 02/12/25 History
drops,suspension
zolpidem 10 mg tablet (Ambien) 10 mg PO HSPRN PRN sleep 02/12/25 02/12/25 History
Review of Systems
-
All other systems: Negative unless noted
Physical Exam
Vital Signs
Vital Signs
Temp Pulse Resp BP Pulse Ox
98.8 F 104 16 108/67 100
02/12/25 10:31 02/12/25 16:30 02/12/25 16:15 02/12/25 16:30 02/12/25 16:30
Lab Results
WBC 4.4 10^3/uL (4.8-10.8) L 02/12/25 11:16
RBC 3.32 10^6/uL (4.70-6.10) L 02/12/25 11:16
Hgb 9.1 g/dL (13.0-18.0) L 02/12/25 11:16
Hct 28.8 % (39.0-52.0) L 02/12/25 11:16
Plt Count 125 10^3/uL (130-400) L 02/12/25 11:16
Sodium 140 mmol/L (135-145) 02/12/25 11:16
Potassium 5.6 mmol/L (3.5-5.1) H 02/12/25 11:16
Chloride 111 mmol/L (98-107) H 02/12/25 11:16
Carbon Dioxide 21 mmol/L (22-30) L 02/12/25 11:16
BUN 25 mg/dl (9-20) H 02/12/25 11:16
Creatinine 1.8 mg/dL (0.7-1.3) H 02/12/25 11:16
eGFR 39.50 02/12/25 11:16
Glucose 232 mg/dl (70-99) H 02/12/25 11:16
Calcium 8.7 mg/dl (8.4-10.2) 02/12/25 11:16
Albumin 4.6 g/dl (3.5-5.0) 02/12/25 11:16
Physical Exam
General: Awake, Alert, Oriented, AOx3, No Distress and Nontoxic
HEENT: EOMI, Anicteric, No JVD and Other (left eye opacification of cornea)
Respiratory: Clear, Normal Excursion and Nonlabored Respirations
Cardiac: S1/S2, No Edema and Other (irregular)
Breast: Deferred by me
Abdomen: Soft, Nontender and Nondistended
Musculoskeletal: No Cyanosis and No Edema
Skin: No Rash
Neuro: Nonfocal/Grossly Intact
Psych: Mood/afflect pleasant, Insight/judgement good and Appropriate
Data Reviewed
-
Labs: Labs Reviewed by me, Discussed with Patient and Discussed with Family
Assessment/Plan
-
Assessment:
NSTEMI
A-fib with RVR/paroxysmal A-fib
CAD/stent OM 2 drug-eluting 11/13/2022
h/o CABG x 5 vessel 2001
hyperkalemia
donor kidney transplant 2016 at [facility]
CKD 3B-baseline cr 1.5-1.7-follows Dr Reyes
Right upper extremity AV fistula working, right lower extremity AV fistula not working
chronic anemia
DM2 with diabetic neuropathy
COPD
Hypothyroidism
GERD
HLD
Hepatitis B hx
Insomnia
History of left eye detached retina chronic blindness
ESRD 2012 beginning hemodialysis
Right arm AV fistula 2014
Thrombocytopenia, chronic
Urethral stricture status post dilatation December 2021
Plan:
A/w cp and likely has NSTEMI, afib RVR too
ckd-cr seem not too far from baseline
recent tac level was 19, will repat tomorrow
resume tac 2mg BID, liquid form if possible otherwise ok to continue tab
LOkelam and low k diet for hyperkalemia
no modifiable risk factors for LHC
Pedrito scoring BRANDON risk of 14%, HD risk of 0.12%
would add IVF 0.45 with bicarb
Bp stable
d/w pt and family at bedside
[2025-02-12 18:01] LABS: Glucose - Point of Care 199 mg/dl (70-99)
[2025-02-12] MEDS: NEURONTIN 300 MG PO ×2 (18:25→22:35)
[2025-02-12] MEDS: NOVOLOG FLEXPEN-LOW RESISTANCE 1 UNITS SC (18:26)
--- NOTE | 2025-02-12 18:33 | PTCARENOTE ---
Rec'd Pt 1730, A,A+OX3, in A-fib on heart monitor. Denies pain presently. Denies SOB. VSS
[2025-02-12] MEDS: LOKELMA 10 GRAM PO (18:54)
[2025-02-12] MEDS: SODIUM BICARBONATE 1075 MEQ IV (19:32)
[2025-02-12] MEDS: COREG PO (19:43)
[2025-02-12] MEDS: PRED FORTE 1% EYE DROPS 3 DROP LEFT EYE ×2 (19:44→22:37)
[2025-02-12] MEDS: OCUVITE SOFTGEL 1 CAP PO (19:44)
[2025-02-12] MEDS: PROGRAF 1 MG PO (19:44)
[2025-02-12] MEDS: TIMOPTIC 0.5% OPHTHALMIC SOLUTION 1 DROP LEFT EYE (19:45)
[2025-02-12] MEDS: MYFORTIC DELAYED REL. 540 MG PO (19:45)
[2025-02-12] MEDS: TRUSOPT 2% OPHTHALMIC SOLUTION 1 DROP LEFT EYE (19:46)
[2025-02-12 19:58] LABS: Troponin I 8.550 ng/ml
--- NOTE | 2025-02-12 21:32 | PTCARENOTE ---
Patient received at change of shift resting in the bed. Denies chest pain at this time. States he is in no pain presently. Afib on the monitor. Diltiazem gtt infusing per order, presently at 5mg/hr. Heparin gtt infusing at 900units/hr per order.
0.45%NS with bicarb infusing per order at 70mL/hr. Oxygen saturation on room air 96-98%. Ordered lab work drawn and set. Ordered ECG completed. Plan of care discussed. Call yeboah within reach. Care ongoing.
[2025-02-12 22:00] LABS: Glucose - Point of Care 254 mg/dl (70-99)
[2025-02-12] MEDS: AMBIEN 10 MG PO (22:35)
[2025-02-12] MEDS: LANTUS 0.02 UNITS SC (22:35)
[2025-02-12 22:59] LABS: APTT 119.8 Sec (23.4-35.0)
[2025-02-13] VITALS (9 sets, daily range): BP systolic 97–129; BP diastolic 41–68; BMI 23.5
[2025-02-13 02:37] LABS: Hematocrit 24.3 % (39.0-52.0); Hemoglobin 7.9 g/dL (13.0-18.0); Mean Corp Hgb Conc. 32.5 g/dL (33.0-37.0); Mean Corpuscular Volume 85.6 fL (80.0-94.0); Nucleated Red Blood Cells % 0 % (-); Platelet Count 117 10^3/uL (130-400); Red Cell Dist. Width 16.9 % (11.5-14.5)
[2025-02-13 03:11] LABS: Troponin I 5.070 ng/ml
[2025-02-13 03:41] LABS: ALT (SGPT) < 10 U/L (0-50); AST (SGOT) 24 U/L (17-59); Albumin 3.8 g/dl (3.5-5.0); Alkaline Phosphatase 74 U/L (38-126); Blood Urea Nitrogen 30 mg/dl (9-20); Calcium 8.3 mg/dl (8.4-10.2); Carbon Dioxide 22 mmol/L (22-30); Chloride 112 mmol/L (98-107); Estimated Creatinine Clearance 37 ml/min; Glucose 195 mg/dl (70-99); HDL Cholesterol 19 mg/dl; LDL Cholesterol, Calculated 3 mg/dl; Potassium 4.4 mmol/L (3.5-5.1); Sodium 139 mmol/L (135-145); Total Protein 6.1 g/dl (6.3-8.2); Very Low Density Lipoprotein 35 mg/dl (0-30); eGFR 37.02
[2025-02-13] MEDS: SYNTHROID 50 MCG PO (05:22)
[2025-02-13] MEDS: CARDIZEM 125 IV (05:22)
[2025-02-13 05:55] LABS: APTT 69.6 Sec (23.4-35.0)
[2025-02-13 07:03] LABS: Glucose - Point of Care 162 mg/dl (70-99)
[2025-02-13] MEDS: COREG PO (08:03)
--- NOTE | 2025-02-13 08:07 | W.PN.HOSP.TC ---
Today's Communication/Plan
-
Heparin drip and ACS protocol
Assessment / Plan
Assessment / Plan
Physical exam:
General: Well Developed, Well Nourished and No Apparent Distress
HEENT: Normocephalic, Atraumatic and Moist Mucous Membranes
Respiratory: Clear to Auscultation; Negative Wheezes, Rales or Rhonchi
Cardiac: Regular Rhythm and S1/S2
GI: Soft, Nontender and Nondistended
Musculoskeletal: No Clubbing, No Cyanosis and No Edema
Neuro: Awake, Alert and Oriented
Psych: Calm
A/P:
Acute NSTEMI:
On heparin drip
Continue aspirin beta-blockers and statins
Cardiology consult appreciated
Discussed with at bedside today
Plan for cardiac cath on Saturday
Paroxysmal A-fib:
Back to normal sinus rhythm today
On IV heparin drip and holding Eliquis
On Coreg 6.25 mg twice a day
CKD stage III/History of renal transplant:
On IV fluids with bicarb
Nephrology consult appreciated
Continue mycophenolate 540 mg twice a day, tacrolimus 1 mg p.o. every 12 hours
Hyperkalemia:
Resolved
Hypothyroidism:
Continue thyroid replacement
Diabetes mellitus:
Insulin mgmt
Continue monitor blood sugars
Other medical problems:
Hypertension
Hyperlipidemia
GERD
COPD
Detached retina with left eye blindness
Chronic anemia
History hepatitis B in the past
Insomnia
History of end-stage renal disease in the past
Thrombocytopenia
History of urethral stricture
DVT prophylaxis:
Heparin drip
CODE STATUS:
Full code
Total time spent on today's encounter was 54 minutes which included time spent in counseling the patient/family regarding diagnosis and treatment plan as listed above, goals of care, and symptom management. Case was discussed with nursing staff,
specialists, and care coordinators/case management. All labs and imaging personally reviewed by me. Remainder the time spent in detailed review of previous records, lab data, imaging, and other medical provider documentation.
Anticipated Discharge: > 48 hours
Subjective/Interval History
-
Date of Service: February 13, 2025
Patient feels better, no shortness of breath. No chest pain
Objective Data
-
Labs:
Laboratory Results
02/12/25 02/13/25 02/13/25
22:40 02:28 05:30
WBC 4.9
Hgb 7.9 L
Hct 24.3 L
Plt Count 117 L
APTT 119.8 H 69.6 H
Sodium 139
Potassium 4.4
Chloride 112 H
Carbon Dioxide 22
BUN 30 H
Creatinine 1.9 H
Glucose 195 H
Calcium 8.3 L
Total Bilirubin 1.0
AST 24
ALT < 10
Alkaline Phosphatase 74
02/13/25
12:00
WBC
Hgb
Hct
Plt Count
APTT Pending
Sodium
Potassium
Chloride
Carbon Dioxide
BUN
Creatinine
Glucose
Calcium
Total Bilirubin
AST
ALT
Alkaline Phosphatase
Vital Signs:
Vital Signs
Temp Pulse Resp BP Pulse Ox
98.1 F 90 18 108/68 98
02/13/25 06:57 02/13/25 06:57 02/13/25 06:57 02/13/25 08:03 02/13/25 06:57
I&O
02/12/25 02/13/25 02/14/25
06:59 06:59 06:59
Intake Total 1000 / 1000
Balance 1000 / 1000
[2025-02-13] MEDS: NEURONTIN 300 MG PO ×3 (08:16→21:04)
[2025-02-13] MEDS: LOW STRENGTH ASPIRIN 81 MG PO (08:16)
[2025-02-13] MEDS: IMDUR (EXTENDED RELEASE) 30 MG PO (08:16)
[2025-02-13] MEDS: MYFORTIC DELAYED REL. 540 MG PO ×2 (08:17→19:56)
[2025-02-13] MEDS: PROGRAF 1 MG PO (08:19)
[2025-02-13] MEDS: OCUVITE SOFTGEL 1 CAP PO ×2 (08:19→19:59)
[2025-02-13] MEDS: NOVOLOG FLEXPEN-LOW RESISTANCE 1 UNITS SC ×2 (08:20→13:45)
[2025-02-13] MEDS: PROTONIX 40 MG PO (08:21)
[2025-02-13] MEDS: CRESTOR 20 MG PO (08:21)
[2025-02-13] MEDS: ZYRTEC 10 MG PO (08:21)
[2025-02-13] MEDS: TIMOPTIC 0.5% OPHTHALMIC SOLUTION 1 DROP LEFT EYE ×2 (08:23→20:01)
[2025-02-13] MEDS: PRED FORTE 1% EYE DROPS 3 DROP LEFT EYE ×3 (08:23→21:05)
[2025-02-13] MEDS: TRUSOPT 2% OPHTHALMIC SOLUTION 1 DROP LEFT EYE ×2 (08:24→20:05)
[2025-02-13 10:30] LABS: Glycohemoglobin (HgbA1c) 4.9 % (4.0-5.6)
--- NOTE | 2025-02-13 11:11 | W.PN.CD ---
Addendum entered and electronically signed by Uriah Parnell MD 02/13/25 12:55:
I saw and examined the patient.
The [employer]'s note was reviewed and I agree with the note.
Comment: Back to sinus this morning. No CP. Feels better. Plan for cath/possible revascularization. In the future a rhythm control approach to AFib with ablation or AAD can be pursued.
Original Note:
Today's Communication / Plan
-
converted to NSR at 9:30a today.
continue IV Heparin, hold Eliquis.
cath saturday02/15/25.
Impression / Plan
-
NSTEMI:
-this diagnosis is threat to life.
-known CAD with CABG and stenting.
-trop peak 8.550.
-echo 02/12/25 with EF 65-70%, wall motion is c/w conduction abnormality, normal RV, no sig change from echo 11/2022.
-CP free.
-continue IV Heparin. Hold Eliquis.
-continue ASA, statin, BB.
-plan for cath on Saturday02/15/25, nephro consulted.
PAF:
-came in with AFIB with RVR, now back in NSR as of 9:30a today.
-will stop IV diltiazem since in NSR, continue Coreg.
-Hold Eliquis and continue IV Heparin.
CKD, hx renal transplant:
-nephro consulted.
Physical Exam
Vital Signs/Labs
Vital Signs
Temp Pulse Resp BP Pulse Ox
98.3 F 78 16 108/68 99
02/13/25 11:05 02/13/25 11:05 02/13/25 11:05 02/13/25 08:03 02/13/25 11:05
02/12/25 02/13/25 02/14/25
06:59 06:59 06:59
Actual Weight 166 lb 0.129 oz
02/13/25 02:28
02/13/25 02:28
APTT 69.6 Sec (23.4-35.0) H 02/13/25 05:30
Magnesium 2.1 mg/dl (1.6-2.3) 02/12/25 11:16
Triglycerides 178 mg/dl (10-149) H 02/13/25 02:28
LDL Cholesterol, Calc 3 mg/dl 02/13/25 02:28
VLDL Cholesterol, Calc 35 mg/dl (0-30) H 02/13/25 02:28
HDL Cholesterol 19 mg/dl 02/13/25 02:28
TSH 3.05 uIU/ml (0.47-4.68) 02/12/25 11:16
LAB Results
02/12/25 02/12/25 02/12/25
11:16 14:09 19:26
Troponin I 2.530 H* 6.150 H* D 8.550 H* D
02/12/25 02/13/25
23:22 02:28
Troponin I Cancelled 5.070 H* D
Physical Exam
Constitutional: No acute distress
EENT: Anicteric and Moist mucous membranes
Cardiovascular: Rhythm & rate is regular
Respiratory: Respiratory effort normal
GI: Soft and Normal bowel sounds
Neuro/Psych: AO x 3
Other: Skin (warm, dry)
Data Reviewed
-
Date of Service: February 13, 2025
Medical Decision Making: Reviewed Test Results
EKG: Tracing Personally Visualized and interpreted
Labs: Labs Reviewed by me
[2025-02-13 11:14] LABS: Glucose - Point of Care 177 mg/dl (70-99)
--- NOTE | 2025-02-13 11:42 | PTCARENOTE ---
Am dose of Coreg not given, BP 108/68, 97/46, parameters per order to hold for SBP <110.
[2025-02-13] MEDS: SODIUM BICARBONATE 1075 MEQ IV (11:47)
--- NOTE | 2025-02-13 12:13 | W.PN.NEPH.PH ---
Today's Communication / Plan
-
recheck tac in am-today lab is not trough
cont IVF
labs in am
Assessment/Plan
-
Assessment:
NSTEMI
A-fib with RVR/paroxysmal A-fib
CAD/stent OM 2 drug-eluting 11/13/2022
h/o CABG x 5 vessel 2000
hyperkalemia
donor kidney transplant 2016 at [facility]
Vishal with CKD 3B-baseline cr 1.5-1.7-follows Dr Reyes
Right upper extremity AV fistula working, right lower extremity AV fistula not working
chronic anemia
DM2 with diabetic neuropathy
COPD
Hypothyroidism
GERD
HLD
Hepatitis B hx
Insomnia
History of left eye detached retina chronic blindness
ESRD 2012 beginning hemodialysis
Right arm AV fistula 2014
Thrombocytopenia, chronic
Urethral stricture status post dilatation December 2021
Plan:
A/w cp and likely has NSTEMI, afib RVR too
cr uptrending slowly at 1.9 possible prerenal from recent afib
recent tac level was 19 on 02/06, labs done today but not trough-will reorder
resume tac 2mg BID, liquid form if possible otherwise ok to continue tab
hyperkalemia better post Lokelma
cont IVF for ano
Pedrito scoring BRANDON risk of 14%, HD risk of 0.12%
would wait cr to stabilize prior LHC
Bp stable
follow h/h, decreasing, also plt low-check fe studies
d/w pt and family at bedside
-
-
Date of Service: February 13, 2025
CC / HPI / ROS
-
Chief Complaint:
Vishal with CKD h/o KTP
History of Present Illness:
cr up at 1.9. Bps table
Afib converted to sinus on cardizem gtt
hb decreasing to 7.9, plt low 117
Review of Systems:
no cp or sob at rest
no n/v
feels well
Labs
-
Labs:
WBC 4.9 10^3/uL (4.8-10.8) 02/13/25 02:28
RBC 2.84 10^6/uL (4.70-6.10) L 02/13/25 02:28
Hgb 7.9 g/dL (13.0-18.0) L 02/13/25 02:28
Hct 24.3 % (39.0-52.0) L 02/13/25 02:28
Plt Count 117 10^3/uL (130-400) L 02/13/25 02:28
Sodium 139 mmol/L (135-145) 02/13/25 02:28
Potassium 4.4 mmol/L (3.5-5.1) 02/13/25 02:28
Chloride 112 mmol/L (98-107) H 02/13/25 02:28
Carbon Dioxide 22 mmol/L (22-30) 02/13/25 02:28
BUN 30 mg/dl (9-20) H 02/13/25 02:28
Creatinine 1.9 mg/dL (0.7-1.3) H 02/13/25 02:28
eGFR 37.02 02/13/25 02:28
Glucose 195 mg/dl (70-99) H 02/13/25 02:28
Calcium 8.3 mg/dl (8.4-10.2) L 02/13/25 02:28
Albumin 3.8 g/dl (3.5-5.0) 02/13/25 02:28
Physical Exam
-
Vital Signs:
Vital Signs
Temp Pulse Resp BP Pulse Ox
98.3 F 78 16 108/68 99
02/13/25 11:05 02/13/25 11:05 02/13/25 11:05 02/13/25 08:03 02/13/25 11:05
Cardiovascular:: Regular rate and rhythm
Respiratory:: Bilateral: CTA
Lung Excursion:: Normal
Abdomen:: Nontender and Soft
Extremity Edema:: None: Bilateral:
Romano Catheter: No
--- NOTE | 2025-02-13 14:30 | PTCARENOTE ---
Pt platelets 117, Dr Handley notified as per Heparin protocol
[2025-02-13 14:32] LABS: APTT 70.9 Sec (23.4-35.0)
[2025-02-13 15:38] LABS: Iron 79 ug/dl (49-181)
[2025-02-13 15:48] LABS: Total Iron Binding Capacity 283 ug/dl (261-462)
[2025-02-13 16:21] LABS: Ferritin 76.3 ng/ml (17.9-464.0)
[2025-02-13 16:57] LABS: Glucose - Point of Care 237 mg/dl (70-99)
--- NOTE | 2025-02-13 16:58 | PTCARENOTE ---
Pt OOB, ambulating in room, denies any chest pain. Pt converted to SR earlier this morning around 0925, Dr Parnell noted. Pt has remained in SR
[2025-02-13] MEDS: NOVOLOG FLEXPEN-LOW RESISTANCE 2 UNITS SC (17:11)
[2025-02-13] MEDS: PROGRAF 2 MG PO (19:57)
[2025-02-13] MEDS: COREG 6.25 MG PO (20:00)
[2025-02-13] MEDS: HEPARIN 25000 UNITS/250 ML IV (20:06)
[2025-02-13 21:04] LABS: Glucose - Point of Care 207 mg/dl (70-99)
[2025-02-13] MEDS: LANTUS 0.02 UNITS SC (21:04)
[2025-02-13] MEDS: AMBIEN 10 MG PO (21:04)
[2025-02-13 21:30] LABS: APTT 94.0 Sec (23.4-35.0)
--- NOTE | 2025-02-13 23:49 | PTCARENOTE ---
Assumed care on pt at 1900, aaox3, resting in bed with no c/o cp or SOB. Heparin gtt infusing at 1000 units/hr. 1/2 NSS with bicarb infusing as per order at 70mL/hr. Remains SR on the tele monitoring with HR 80's. BP stable. Call yeboah within reach
and POC ongoing.
[2025-02-14] VITALS (7 sets, daily range): BP systolic 109–138; BP diastolic 47–67; BMI 24.0
[2025-02-14] MEDS: SODIUM BICARBONATE 1075 MEQ IV (03:40)
[2025-02-14 04:11] LABS: Hematocrit 20.6 % (39.0-52.0); Hemoglobin 6.4 g/dL (13.0-18.0); Mean Corp Hgb Conc. 31.1 g/dL (33.0-37.0); Mean Corpuscular Volume 87.3 fL (80.0-94.0); Nucleated Red Blood Cells % 0 % (-); Platelet Count 107 10^3/uL (130-400); Red Cell Dist. Width 17.0 % (11.5-14.5)
[2025-02-14 04:16] LABS: APTT 103.7 Sec (23.4-35.0)
[2025-02-14] MEDS: SYNTHROID 50 MCG PO (04:25)
[2025-02-14 04:50] LABS: ALT (SGPT) < 10 U/L (0-50); AST (SGOT) 17 U/L (17-59); Albumin 3.4 g/dl (3.5-5.0); Alkaline Phosphatase 67 U/L (38-126); Blood Urea Nitrogen 27 mg/dl (9-20); Calcium 7.6 mg/dl (8.4-10.2); Carbon Dioxide 20 mmol/L (22-30); Chloride 111 mmol/L (98-107); Estimated Creatinine Clearance 41 ml/min; Glucose 177 mg/dl (70-99); Potassium 4.3 mmol/L (3.5-5.1); Sodium 136 mmol/L (135-145); Total Protein 5.5 g/dl (6.3-8.2); eGFR 42.30
[2025-02-14 05:04] LABS: Hematocrit 23.4 % (39.0-52.0); Hemoglobin 7.4 g/dL (13.0-18.0); Mean Corp Hgb Conc. 31.6 g/dL (33.0-37.0); Mean Corpuscular Volume 86.3 fL (80.0-94.0); Platelet Count 115 10^3/uL (130-400); Red Cell Dist. Width 17.2 % (11.5-14.5)
[2025-02-14 07:33] LABS: Glucose - Point of Care 156 mg/dl (70-99)
[2025-02-14] MEDS: OCUVITE SOFTGEL 1 CAP PO ×2 (07:50→19:34)
[2025-02-14] MEDS: ZYRTEC 10 MG PO (07:50)
[2025-02-14] MEDS: IMDUR (EXTENDED RELEASE) 30 MG PO (07:50)
[2025-02-14] MEDS: LOW STRENGTH ASPIRIN 81 MG PO (07:51)
[2025-02-14] MEDS: COREG 6.25 MG PO ×2 (07:51→19:34)
[2025-02-14] MEDS: CRESTOR 20 MG PO (07:51)
[2025-02-14] MEDS: NEURONTIN 300 MG PO ×3 (07:51→21:12)
[2025-02-14] MEDS: PROTONIX 40 MG PO (07:51)
[2025-02-14] MEDS: PROGRAF 2 MG PO ×2 (07:51→19:33)
[2025-02-14] MEDS: MYFORTIC DELAYED REL. 540 MG PO ×2 (07:52→19:33)
[2025-02-14] MEDS: PRED FORTE 1% EYE DROPS 3 DROP LEFT EYE ×3 (07:53→21:18)
[2025-02-14] MEDS: TRUSOPT 2% OPHTHALMIC SOLUTION 1 DROP LEFT EYE ×2 (07:53→19:34)
[2025-02-14] MEDS: TIMOPTIC 0.5% OPHTHALMIC SOLUTION 1 DROP LEFT EYE ×2 (07:53→19:34)
[2025-02-14] MEDS: NOVOLOG FLEXPEN-LOW RESISTANCE 1 UNITS SC ×2 (09:23→17:33)
--- NOTE | 2025-02-14 10:23 | PTCARENOTE ---
Pt is AOx3, no complaints of pain or discomfort. Standby assist OOB. SR on tele monitor, VSS. Heparin gtt infusing per protocol. IVF infusing per orders. Call yeboah within reach.
--- NOTE | 2025-02-14 11:29 | W.PN.HOSP.TC ---
Today's Communication/Plan
-
ACS protocol. Plan for cardiac cath tomorrow. Hematology eval
Assessment / Plan
Assessment / Plan
Physical exam:
General: Acutely ill
HEENT: Normocephalic, Atraumatic and Moist Mucous Membranes
Respiratory: Clear to Auscultation; Negative Wheezes, Rales or Rhonchi
Cardiac: Regular Rhythm and S1/S2
GI: Soft, Nontender and Nondistended
Musculoskeletal: No Clubbing, No Cyanosis and No Edema
Neuro: Awake, Alert and Oriented, no neurological deficits
Psych: Calm
A/P:
Acute NSTEMI:
On heparin drip
Continue aspirin beta-blockers and statins
Cardiology consult appreciated
Discussed with at bedside yesterday
Plan for cardiac cath on Saturday
Paroxysmal A-fib:
Back to normal sinus rhythm today
On IV heparin drip and holding Eliquis
On Coreg 6.25 mg twice a day
Pancytopenia:
Lab error earlier on hemoglobin this morning and repeated hemoglobin 7.4
Hemoglobin still relatively low with mild drift down
Hematology consult
Thrombocytopenia:
Platelet counts continue to drift down and today is 115
He does have some chronicity but he is also on heparin drip so will consult Hematology for further advise
CKD stage III/History of renal transplant:
On IV fluids with bicarb
Nephrology consult appreciated
Continue mycophenolate 540 mg twice a day, tacrolimus 1 mg p.o. every 12 hours
Hyperkalemia:
Resolved
Hypothyroidism:
Continue thyroid replacement
Diabetes mellitus:
Insulin mgmt
Continue monitor blood sugars
Other medical problems:
Hypertension
Hyperlipidemia
GERD
COPD
Detached retina with left eye blindness
Chronic anemia
History hepatitis B in the past
Insomnia
History of end-stage renal disease in the past
Thrombocytopenia
History of urethral stricture
DVT prophylaxis:
Heparin drip
CODE STATUS:
Full code
Total time spent on today's encounter was 54 minutes which included time spent in counseling the patient/family regarding diagnosis and treatment plan as listed above, goals of care, and symptom management. Case was discussed with nursing staff,
specialists, and care coordinators/case management. All labs and imaging personally reviewed by me. Remainder the time spent in detailed review of previous records, lab data, imaging, and other medical provider documentation.
Anticipated Discharge: 24 - 48 hours
Subjective/Interval History
-
Date of Service: February 14, 2025
Patient denies any chest pain today. Denies any active bleeding. Afebrile
Objective Data
-
Labs:
Laboratory Results
02/14/25 02/14/25 02/14/25
03:48 04:49 10:35
WBC 3.0 L 3.2 L
Hgb 6.4 L* 7.4 L
Hct 20.6 L* 23.4 L
Plt Count 107 L 115 L
APTT 103.7 H
Sodium 136
Potassium 4.3
Chloride 111 H
Carbon Dioxide 20 L
BUN 27 H
Creatinine 1.7 H
Glucose 177 H
Calcium 7.6 L
Total Bilirubin 0.8 Pending
AST 17 Pending
ALT < 10 Pending
Alkaline Phosphatase 67 Pending
Vital Signs:
Vital Signs
Temp Pulse Resp BP Pulse Ox
98.1 F 78 18 132/54 99
02/14/25 07:58 02/14/25 10:15 02/14/25 07:58 02/14/25 07:51 02/14/25 07:58
I&O
02/13/25 02/14/25 02/15/25
06:59 06:59 06:59
Intake Total 1000 / 1000 1200 / 1200 300 / 300
Balance 999 / 999 1200 / 1200 300 / 300
[2025-02-14 11:56] LABS: Glucose - Point of Care 272 mg/dl (70-99)
--- NOTE | 2025-02-14 12:10 | W.PN.NEPH.PH ---
Today's Communication / Plan
-
d/c IVF
follow labs
IVF with Cath tomorrow
Assessment/Plan
-
Assessment:
NSTEMI
A-fib with RVR/paroxysmal A-fib
CAD/stent OM 2 drug-eluting 11/13/2022
h/o CABG x 5 vessel 2000
hyperkalemia
donor kidney transplant 2016 at [facility]
Vishal with CKD 3B-baseline cr 1.5-1.7-follows Dr Reyes
Right upper extremity AV fistula working, right lower extremity AV fistula not working
chronic anemia
DM2 with diabetic neuropathy
COPD
Hypothyroidism
GERD
HLD
Hepatitis B hx
Insomnia
History of left eye detached retina chronic blindness
ESRD 2012 beginning hemodialysis
Right arm AV fistula 2014
Thrombocytopenia, chronic
Urethral stricture status post dilatation December 2021
Plan:
A/w cp and likely has NSTEMI, afib RVR
cr down to 1.7 at baseline , felt prerenal etiology of mild VISHAL
recent tac level was 19 on 02/06, labs done on 02/13 but not trough-recheck today after changing prograf dose 2mg BID on 02/13 night
increased tac 2mg BID on 02/13(home dose)
wt is up, d/c IVF today
Pedrito scoring BRANDON risk of 14%, HD risk of 0.12%
plan LHC tomorrow with bicarb IVF
Bp stable
follow h/h, decreasing, also plt low-adequate fe stores-heme consulted
d/w pt and family at bedside
-
-
Date of Service: February 14, 2025
CC / HPI / ROS
-
Chief Complaint:
Vishal with CKD h/o KTP
History of Present Illness:
cr down to 1.7. Bps table
in sinus now
hb decreasing to 7.4, plt low 115
wt increasing
Review of Systems:
no cp or sob at rest
no n/v
feels well
Labs
-
Labs:
WBC 3.2 10^3/uL (4.8-10.8) L 02/14/25 04:49
RBC 2.71 10^6/uL (4.70-6.10) L 02/14/25 04:49
Hgb 7.4 g/dL (13.0-18.0) L 02/14/25 04:49
Hct 23.4 % (39.0-52.0) L 02/14/25 04:49
Plt Count 115 10^3/uL (130-400) L 02/14/25 04:49
Sodium 136 mmol/L (135-145) 02/14/25 03:48
Potassium 4.3 mmol/L (3.5-5.1) 02/14/25 03:48
Chloride 111 mmol/L (98-107) H 02/14/25 03:48
Carbon Dioxide 20 mmol/L (22-30) L 02/14/25 03:48
BUN 27 mg/dl (9-20) H 02/14/25 03:48
Creatinine 1.7 mg/dL (0.7-1.3) H 02/14/25 03:48
eGFR 42.30 02/14/25 03:48
Glucose 177 mg/dl (70-99) H 02/14/25 03:48
Calcium 7.6 mg/dl (8.4-10.2) L 02/14/25 03:48
Physical Exam
-
Vital Signs:
Vital Signs
Temp Pulse Resp BP Pulse Ox
97.9 F 74 17 124/47 97
02/14/25 11:46 02/14/25 11:45 02/14/25 11:46 02/14/25 11:33 02/14/25 11:46
Cardiovascular:: Regular rate and rhythm
Respiratory:: Bilateral: CTA
Lung Excursion:: Normal
Abdomen:: Nontender and Soft
Extremity Edema:: None: Bilateral:
Romano Catheter: No
[2025-02-14 12:38] LABS: Reticulocyte Count 4.9 % (0.4-2.8)
[2025-02-14 12:48] LABS: Fibrinogen 267 MG/DL (199-459)
[2025-02-14 12:49] LABS: Glucose - Point of Care 282 mg/dl (70-99)
[2025-02-14] MEDS: NOVOLOG FLEXPEN-LOW RESISTANCE 3 UNITS SC (12:49)
[2025-02-14 12:52] LABS: ALT (SGPT) < 10 U/L (0-50); AST (SGOT) 15 U/L (17-59); Albumin 3.5 g/dl (3.5-5.0); Alkaline Phosphatase 59 U/L (38-126); Iron 57 ug/dl (49-181); LDH 205 U/L (120-246); Total Protein 5.8 g/dl (6.3-8.2)
[2025-02-14 13:01] LABS: Total Iron Binding Capacity 284 ug/dl (261-462)
[2025-02-14 13:28] LABS: Ferritin 67.1 ng/ml (17.9-464.0)
[2025-02-14 13:42] LABS: Vitamin B12 222 pg/ml (239-931)
--- NOTE | 2025-02-14 13:47 | W.PN.CD ---
Today's Communication / Plan
-
Plan for cath/possible revascularization
In the future a rhythm control approach to AFib with ablation or AAD can be pursued.
Will review the acute on chronic anemia with hospitalist. Might need to defer cath
Impression / Plan
-
NSTEMI:
-known CAD with CABG and stenting.
-trop peak 8.550.
-echo 02/12/25 with EF 65-70%, wall motion is c/w conduction abnormality, normal RV, no sig change from echo 11/2022.
-continue IV Heparin. Hold Eliquis.
-continue ASA, statin, BB.
-plan for cath on Saturday02/15/25, nephro consulted.
Acute on chronic anemia
-Elevated retic noted
-Haptoglobin pending
02/14/25
12:
Retic Count 4.9 H
PAF:
-came in with AFIB with RVR, now back in NSR as of 9:30a 02/13/2025
-will stop IV diltiazem since in NSR, continue Coreg.
-Hold Eliquis and continue IV Heparin.
CKD, hx renal transplant:
-nephro consulted.
Physical Exam
Vital Signs/Labs
Vital Signs
Temp Pulse Resp BP Pulse Ox
97.9 F 74 17 124/47 97
02/14/25 11:46 02/14/25 11:45 02/14/25 11:46 02/14/25 11:33 02/14/25 11:46
02/13/25 02/14/25 02/15/25
06:59 06:59 06:59
Actual Weight 75.3 kg 77 kg
02/14/25 04:49
02/14/25 03:48
APTT 103.7 Sec (23.4-35.0) H 02/14/25 03:48
Magnesium 2.1 mg/dl (1.6-2.3) 02/12/25 11:16
Triglycerides 178 mg/dl (10-149) H 02/13/25 02:28
LDL Cholesterol, Calc 3 mg/dl 02/13/25 02:28
VLDL Cholesterol, Calc 35 mg/dl (0-30) H 02/13/25 02:28
HDL Cholesterol 19 mg/dl 02/13/25 02:28
TSH 3.05 uIU/ml (0.47-4.68) 02/12/25 11:16
LAB Results
02/12/25 02/12/25 02/12/25
11:16 14:09 19:26
Troponin I 2.530 H* 6.150 H* D 8.550 H* D
02/12/25 02/13/25
23:22 02:28
Troponin I Cancelled 5.070 H* D
Physical Exam
Constitutional: No acute distress
EENT: Anicteric
Cardiovascular: Rhythm & rate is regular and Pedal edema is absent
Respiratory: Respiratory effort normal and Lungs clear to auscul.
GI: Soft and Distention absent
Neuro/Psych: AO x 3
Data Reviewed
-
Date of Service: February 14, 2025
[2025-02-14 15:08] LABS: Folate 8.7 ng/ml (2.76-20)
--- NOTE | 2025-02-14 15:31 | CON.ONC ---
Consultation
-
Date Consultation Requested: 02/14/25
Date Consultation Performed: 02/14/25
Requesting Provider: Adam Handley
Performing Provider: Sondra Lai
Reason for Consultation: pancytopenia
Impression
Impression
Anemia, acute on chronic
B12 deficiency
Chronic immunosuppression
Renal transplant
Renal insufficiency
Acute coronary syndrome
Plan
Plan
Mycophenolate has a well established association with anemia and leukopenia.
He has renal insufficiency which is likely contributing as well to the anemia, Epo level pending.
Heme-check stools. Denies rectal bleeding but retic count suggests there may be some acute blood loss, and hematology labs are negative so far.
Tacrolimus has an association with thrombocytopenia.
Hx notes Hep B, check U/S spleen now.
Iron studies appear adequate for hematopoiesis but ferritin would need to be >100 for outpt PEDRO.
We can see pt in outpt setting to discuss possible PEDRO.
I personally reviewed the peripheral smear which was unremarkable.
No reason from Heme standpoint not to proceed with cardiac cath as planned.
Thank you for consult, will follow along with you.
Patient History
History of Present Illness
74 yo man with history of CAD, renal transplant on mycophenolate and tacrolimus, renal insufficiency, admitted with chest and L shoulder pain concerning for acute coronary syndrome. He has chronic cytopenias, not following with any fundraising director.
His thrombocytopenia is chronic intermittent with platelet range 90-150 over the last ten years, without recent adverse trend. Anemia also chronic but for the last year, Hgb has been consistently less than 10. Kidney function has been stable over
this period. There has been no discussion of possible PEDRO tx. He last underwent upper and lower endoscopy in 2019 with finding of a single hyperplastic polyp on colonoscopy and metaplasia without dysplasia at squamo-columnar junction on EGD. He has
a GI appointment coming up in April to discuss routine endoscopy. Denies rectal bleeding or dark tarry stools. States he has been fatigue and he does attribute this symptom to the anemia. Since hospital admission, pt has been on heparin gtt
for ACS. Plt drop has been minimal but Hgb down 2.7g between 02/12 admission (9.1) and am labs today (6.4 -> 7.4 on re-check.) Anemia workup ordered this morning so far significant for B12 low at 222. Iron stores adequate with ferritin 67.1, sat
20%. Retic slightly elevated at 4.9%. As per Renal note: His tacrolimus was changed from liquid to tab in last year however recent level was at 19, cr 1.8 on 02/06, dose reduced to 2mg BID.
Past-Medical/Surgical History
Past Medical/Surgical Hx
CAD/CABG x 5 vessel 2000, drug-eluting stent 11/13/2022
Paroxysmal A-fib
HTN
HLD
DM2
Diabetic neuropathy bilateral feet
Renal transplant 2016 - [facility]
Right upper extremity AV fistula working, right lower extremity AV fistula not working
Chronic cytopenias
GERD
Hx hepatitis B
COPD
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
Social History
Tobacco: Non-Smoker
Alcohol: None
Drug: None
Personal:
Living: With Family. Daughter and grandson present today during consultation.
Family History
Patient is adopted however did find out that mother had history of kidney disease mother side uncles CAD
Patient Medication
�Medication �Instructions �Recorded �Confirmed �Last Taken �Type
apixaban 5 mg tablet (Eliquis) 5 mg PO BID Blood clot 03/25/22 02/12/25 02/12/25 History
prevention/tx
dorzolamide 22.3 mg-timolol 6.8 1 drp LEFT EYE BID Eye condition 03/25/22 02/12/25 02/12/25 History
mg/mL eye drops
insulin lispro 100 unit/mL 1 sliding scale dose SC AC Diabetes 03/25/22 02/12/25 11/12/22 20:00 History
subcutaneous solution (Humalog
U-100 Insulin)
mometasone-formoterol HFA 200 2 puff inhalation R BIDPRN PRN 03/25/22 02/12/25 Unknown History
mcg-5 mcg/actuation aerosol cough
inhaler (Dulera)
rosuvastatin 20 mg tablet 20 mg PO DAILY High cholesterol 03/25/22 02/12/25 02/12/25 History
vit C 250 mg-E 90 mg-zinc 40 1 tab PO BID Supplement 03/25/22 02/12/25 02/12/25 History
mg-copper 1 [id number] chew
tablet (PreserVision AREDS-2)
tacrolimus 1 mg capsule, 1 mg PO Q12H Transplant ##0 03/30/22 02/12/25 02/12/25 History
immediate-release (Prograf)
aspirin 81 mg tablet 81 mg PO DAILY Blood Clot 11/13/22 02/12/25 02/12/25 History
Prevention/Tx
gabapentin 300 mg capsule 300 mg PO TID NEUROPATHIC PAIN 11/13/22 02/12/25 02/12/25 History
gabapentin 600 mg tablet 300 mg PO HSPRN PRN mild pain 11/13/22 02/12/25 Unknown History
pantoprazole 40 mg tablet,delayed 40 mg PO DAILY #90 tabs 11/13/22 02/12/25 02/12/25 Rx
release
acetaminophen 325 mg tablet 975 mg PO DAILYPRN PRN mild pain 02/12/25 02/12/25 02/12/25 History
(Tylenol)
carvedilol 6.25 mg tablet (Coreg) 6.25 mg PO BID Blood Pressure 02/12/25 02/12/25 02/12/25 History
cetirizine 10 mg tablet (Zyrtec) 10 mg PO DAILY Allergies 02/12/25 02/12/25 02/12/25 History
insulin glargine 100 unit/mL (3 2 unit SC HS Diabetes 02/12/25 02/12/25 Unknown History
mL) subcutaneous pen (Lantus
Solostar U-100 Insulin)
isosorbide mononitrate 30 mg 30 mg PO DAILY Heart 02/12/25 02/12/25 02/12/25 History
tablet,extended release 24 hr Disease/Condition
levothyroxine 50 mcg tablet 50 mcg PO HS Thyroid 02/12/25 02/12/25 02/11/25 History
(Synthroid)
mycophenolate sodium 180 mg 540 mg PO BID Transplant 02/12/25 02/12/25 02/12/25 History
tablet,delayed release
prednisolone acetate 1 % eye 3 drp LEFT EYE TID Eye Condition 02/12/25 02/12/25 02/12/25 History
drops,suspension
zolpidem 10 mg tablet (Ambien) 10 mg PO HSPRN PRN sleep 02/12/25 02/12/25 Unknown History
Active Medications
Generic Name Dose Route Start Last Admin
Trade Name Freq PRN Reason Stop Dose Admin
Acetaminophen 650 mg 02/12/25 17:22
Acetaminophen 325 Mg Tablet PO 03/12/25 17:21
Q4HPRN PRN
mild pain/MOTLEY/temp> 100.4F
Aspirin 81 mg 02/13/25 08:00 02/14/25 07:51
Aspirin 81 Mg Chewable Tablet PO 03/13/25 07:59 81 mg
DAILY CRISSY Administration
Bisacodyl 10 mg 02/12/25 17:22
Bisacodyl 10 Mg Rectal Suppository RECTAL 03/12/25 17:21
[id number] PRN
constipation
Budesonide/Formoterol Fumarate 2 puff 02/12/25 18:10
Symbicort Inhaler 160/4.5 INH 03/12/25 18:09
R BIDPRN PRN
cough
Carvedilol 6.25 mg 02/12/25 20:00 02/14/25 07:51
Carvedilol 6.25 Mg Tablet PO 03/12/25 19:59 6.25 mg
BID CRISSY Administration
Cetirizine HCl 10 mg 02/13/25 08:00 02/14/25 07:50
Cetirizine Hcl 10 Mg Tablet PO 03/13/25 07:59 10 mg
DAILY CRISSY Administration
Dextrose 12.5 grams 02/12/25 17:22
Dextrose 50% (0.5 Grams/Ml) 50 Ml Syringe IV 03/12/25 17:21
[id number] PRN
hypoglycemia
Protocol
Dorzolamide HCl 0 drop 02/12/25 20:00 02/14/25 07:53
Dorzolamide 2% (Ophthalmic Solution) 10 Ml Bottle LEFT EYE 03/12/25 19:59 1 drop
BID CRISSY Administration
Gabapentin 300 mg 02/12/25 22:00
Gabapentin 300 Mg Capsule PO 03/12/25 21:59
HSPRN PRN
mild pain
Gabapentin 300 mg 02/12/25 17:22 02/14/25 15:25
Gabapentin 300 Mg Capsule PO 03/12/25 17:21 300 mg
TID CRISSY Administration
Glucagon 1 mg 02/12/25 17:22
Glucagon 1 Mg Vial IM 03/12/25 17:21
PRN PRN
hypoglycemia
Protocol
Heparin Sodium 25,000 units in 250 mls @ 0 mls/hr 02/12/25 15:45 02/13/25 20:06
Heparin 59437 Units/250 Ml IV 250 mls
PER PROTOCOL CRISSY Administration
Protocol
Per Protocol
Insulin Glargine 2 units/ 0.02 mls @ 0 mls/hr 02/12/25 22:00 02/13/25 21:04
Device SC 03/12/25 21:59 0.02 mls
HS CRISSY Administration
As Directed
Sodium Bicarbonate 150 meq/ 1,150 mls @ 0 mls/hr 02/15/25 08:00
Sterile Water IV 02/15/25 23:59
PER PROTOCOL CRISSY
Protocol
Per Protocol
Insulin Aspart 0 units 02/12/25 17:22 02/14/25 12:49
Insulin Aspart Low Resistance 300 Units/3 Ml Pen.Injctr SC 03/12/25 17:21 3 units
AC CRISSY Administration
Protocol
Isosorbide Mononitrate 30 mg 02/13/25 08:00 02/14/25 07:50
Isosorbide Mononitrate 30 Mg Extended Release Tablet PO 03/13/25 07:59 30 mg
DAILY CRISSY Administration
Levothyroxine Sodium 50 mcg 02/13/25 06:00 02/14/25 04:25
Levothyroxine 50 Mcg Tablet PO 03/13/25 05:59 50 mcg
DAILY@0600 CRISSY Administration
Mycophenolate Sodium 540 mg 02/12/25 20:00 02/14/25 07:52
Mycophenolic Acid [address] Tablet (Non Form) PO 540 mg
BID CRISSY Administration
Pantoprazole Sodium 40 mg 02/13/25 08:00 02/14/25 07:51
Pantoprazole 40 Mg Delayed Release Tablet PO 03/13/25 07:59 40 mg
DAILY CRISSY Administration
Polyethylene Glycol 17 grams 02/12/25 17:22
Polyethylene Glycol Powder 17 Grams Packet PO 03/12/25 17:21
DAILYPRN PRN
constipation
Prednisolone Acetate 3 drop 02/12/25 17:22 02/14/25 15:25
Prednisolone 1% (Ophthalmic Suspension) Bottle LEFT EYE 03/12/25 17:21 3 drop
TID CRISSY Administration
Rosuvastatin Calcium 20 mg 02/13/25 08:00 02/14/25 07:51
Rosuvastatin (Crestor) 20 Mg Tablet PO 03/13/25 07:59 20 mg
DAILY CRISSY Administration
Senna/Docusate Sodium 1 tablet 02/12/25 17:22
Docusate W/Senna (Maria R-Colace) Tablet PO 03/12/25 17:21
BIDPRN PRN
constipation
Sodium Chloride 0 flush 02/12/25 16:00
Sodium Chloride 0.9% (Flush) Syringe IV 03/12/25 15:59
PER PROTOCOL CRISSY
Tacrolimus 2 mg 02/13/25 20:00 02/14/25 07:51
Tacrolimus 1 Mg Capsule PO 03/12/25 19:59 2 mg
Q12 CRISSY Administration
Timolol Maleate 0 drop 02/12/25 20:00 02/14/25 07:53
Timolol 0.5% (Ophthalmic Solution) Bottle LEFT EYE 03/12/25 19:59 1 drop
BID CRISSY Administration
Vitamin C/Vitamin E 1 cap 02/12/25 20:00 02/14/25 07:50
Vit C/Vit E/Lutein/Min/[place]-3 (Ocuvite) Capsule PO 03/12/25 19:59 1 cap
BID CRISSY Administration
Zolpidem Tartrate 10 mg 02/12/25 22:00 02/13/25 21:04
Zolpidem Tartrate 10 Mg Tablet PO 03/12/25 21:59 10 mg
HSPRN PRN Administration
sleep
Review of Systems
-
History Source: Patient, Family and Records
All Other Systems: Reviewed and Negative
Constitutional: Reports Fatigue; Denies Fever or Weight Gain
EENT: Reports No Symptoms
Respiratory: Reports Other (shortness of breath)
Cardiac: Reports Chest Pain
GI: Reports No Symptoms
: Reports No Symptoms
Musculoskeletal: Reports No Symptoms
Skin: Reports No Symptoms
Neuro: Reports No Symptoms
Endocrine: Reports No Symptoms
Hematologic/Lymphatic: Reports No Symptoms
Allergy / Immunology: Reports No Symptoms
Psych: Reports No Symptoms
Physical Exam
-
General: Well Developed and Well Nourished
HEENT: Moist Mucous Membranes; Negative Jaundice
Cardiology: S1, S2 and Irregular Rate/Rhythm
Pulmonary: Clear; Negative Wheezes
GI: Soft and Normal Bowel Sounds
Musculoskeletal: No Clubbing, No Cyanosis and No Edema
Extremities: No C/C/E
Neurology: Non Focal
Skin: Warm and Dry
Hematologic / Lymphatic: No Lymphadenopathy
Psych: Calm and Intact Judgement/Insight
Labs
Lab Results
WBC 3.2 10^3/uL (4.8-10.8) L 02/14/25 04:49
RBC 2.71 10^6/uL (4.70-6.10) L 02/14/25 04:49
Hgb 7.4 g/dL (13.0-18.0) L 02/14/25 04:49
Hct 23.4 % (39.0-52.0) L 02/14/25 04:49
MCV 86.3 fL (80.0-94.0) 02/14/25 04:49
MCH 27.3 pg (27.0-31.0) 02/14/25 04:49
MCHC 31.6 g/dL (33.0-37.0) L 02/14/25 04:49
RDW 17.2 % (11.5-14.5) H 02/14/25 04:49
Plt Count 115 10^3/uL (130-400) L 02/14/25 04:49
MPV 11.0 fL (7.4-10.4) H 02/14/25 04:49
Abs Immat Gran (auto) 0.0 10^3/uL (0-0.05) 02/14/25 03:48
Absolute Neuts (auto) 1.4 10^3/uL (1.4-6.5) 02/14/25 03:48
Absolute Lymphs (auto) 1.2 10^3/uL (1.2-3.4) 02/14/25 03:48
Absolute Monos (auto) 0.3 10^3/uL (0.1-0.6) 02/14/25 03:48
Absolute Eos (auto) 0.1 10^3/uL (0-0.7) 02/14/25 03:48
Absolute Basos (auto) 0.0 10^3/uL (0-0.2) 02/14/25 03:48
Immature Gran % 0.0 % (0-0.5) 02/14/25 03:48
Neutrophils % 45.5 % (42.2-75.2) 02/14/25 03:48
Lymphocytes % 40.5 % (20.5-51.1) 02/14/25 03:48
Monocytes % 10.0 % (1.7-9.3) H 02/14/25 03:48
Eosinophils % 3.3 % (0-6) 02/14/25 03:48
Basophils % 0.7 % (0-2) 02/14/25 03:48
Creatinine 1.7 mg/dL (0.7-1.3) H 02/14/25 03:48
Vital Signs
Vital Signs
Temp Pulse Resp BP Pulse Ox
97.9 F 74 18 124/47 98
02/14/25 15:22 02/14/25 14:15 02/14/25 15:22 02/14/25 11:33 02/14/25 15:22
[2025-02-14 17:01] LABS: Glucose - Point of Care 178 mg/dl (70-99)
[2025-02-14] MEDS: CYANOCOBALAMIN 1000 MCG IM (19:33)
[2025-02-14] MEDS: AMBIEN 10 MG PO (21:12)
[2025-02-14 21:15] LABS: Glucose - Point of Care 219 mg/dl (70-99)
[2025-02-14] MEDS: LANTUS 0.02 UNITS SC (21:15)
[2025-02-14] MEDS: HEPARIN 25000 UNITS/250 ML IV (21:16)
--- NOTE | 2025-02-14 23:19 | PTCARENOTE ---
Patient received at change of shift resting in the bed. Heparin gtt infusing at 1000units/hr. Patient reported brief episode of nausea and feeling lightheaded after getting back in the bed from the bathroom, also reported yanking on his IV by
accident and the nausea/lightheadedness followed this. These symptoms have since passed. LFA and LAC PIVs intact. The patient denies chest pain or any other pain at present. VSS. Oxygen saturation 99-100% on room air. Sinus rhythm with first degree
AV block on telemetry. The patient also reports feeling somewhat anxious regarding his procedure tomorrow. PRN zolpidem given, see MAR. Discussed plan of care with patient including NPO at midnight for possible cardiac cath. Call yeboah within reach.
Care ongoing.
[2025-02-15] VITALS (21 sets, daily range): BP systolic 118–144; BP diastolic 47–62; BMI 24.1
[2025-02-15 03:34] LABS: Hematocrit 23.0 % (39.0-52.0); Hemoglobin 7.2 g/dL (13.0-18.0); Mean Corp Hgb Conc. 31.3 g/dL (33.0-37.0); Mean Corpuscular Volume 88.1 fL (80.0-94.0); Nucleated Red Blood Cells % 0 % (-); Platelet Count 110 10^3/uL (130-400); Red Cell Dist. Width 17.0 % (11.5-14.5)
[2025-02-15 03:47] LABS: APTT 90.7 Sec (23.4-35.0)
[2025-02-15 04:50] LABS: ALT (SGPT) < 10 U/L (0-50); AST (SGOT) 16 U/L (17-59); Albumin 3.8 g/dl (3.5-5.0); Alkaline Phosphatase 66 U/L (38-126); Blood Urea Nitrogen 23 mg/dl (9-20); Calcium 8.4 mg/dl (8.4-10.2); Carbon Dioxide 23 mmol/L (22-30); Chloride 110 mmol/L (98-107); Estimated Creatinine Clearance 41 ml/min; Glucose 144 mg/dl (70-99); Potassium 4.5 mmol/L (3.5-5.1); Sodium 140 mmol/L (135-145); Total Protein 6.0 g/dl (6.3-8.2); eGFR 42.30
[2025-02-15] MEDS: SYNTHROID 50 MCG PO (04:57)
[2025-02-15 08:19] LABS: Glucose - Point of Care 137 mg/dl (70-99)
--- NOTE | 2025-02-15 08:21 | W.PN.HOSP.TC ---
Today's Communication/Plan
-
Cardiac cath
Assessment / Plan
Assessment / Plan
Physical exam:
General: Acutely ill
HEENT: Normocephalic, Atraumatic and Moist Mucous Membranes
Respiratory: Clear to Auscultation; Negative Wheezes, Rales or Rhonchi
Cardiac: Regular Rhythm and S1/S2
GI: Soft, Nontender and Nondistended
Musculoskeletal: No Clubbing, No Cyanosis and No Edema
Neuro: Awake, Alert and Oriented, no neurological deficits
Psych: Calm
A/P:
Acute NSTEMI:
On heparin drip
Continue aspirin beta-blockers and statins
Cardiology consult appreciated
Discussed with at bedside prior
Plan for cardiac cath today
Paroxysmal A-fib:
Back to normal sinus rhythm
On IV heparin drip and holding Eliquis
On Coreg 6.25 mg twice a day
Pancytopenia including anemia:
Hemoglobin 7.2 today
Hemoglobin has remained relatively stable while being on heparin drip
Hematology consult appreciated-hematology noticed his anemia is multifactorial as stated on her notes and okay to proceed with cardiac cath.
B12 deficiency:
On B12 supplementation-will switch to oral upon discharge
Thrombocytopenia:
Platelet counts 110 today
Hematology consult appreciated
CKD stage III/History of renal transplant:
On IV fluids with bicarb per protocol
Creatinine 1.7 today
Nephrology consult appreciated
Continue mycophenolate 540 mg twice a day, tacrolimus 1 mg p.o. every 12 hours
Hyperkalemia:
Resolved
Hypothyroidism:
Continue thyroid replacement
Diabetes mellitus:
Insulin mgmt
Continue monitor blood sugars
Other medical problems:
Hypertension
Hyperlipidemia
GERD
COPD
Detached retina with left eye blindness
Chronic anemia
History hepatitis B in the past
Insomnia
History of end-stage renal disease in the past
Thrombocytopenia
History of urethral stricture
DVT prophylaxis:
Heparin drip
CODE STATUS:
Full code
Total time spent on today's encounter was 50 minutes which included time spent in counseling the patient/family regarding diagnosis and treatment plan as listed above, goals of care, and symptom management. Case was discussed with nursing staff,
specialists, and care coordinators/case management. All labs and imaging personally reviewed by me. Remainder the time spent in detailed review of previous records, lab data, imaging, and other medical provider documentation.
Anticipated Discharge: Within 24 hours
Subjective/Interval History
-
Date of Service: February 15, 2025
Patient denies any chest pain or shortness of breath. No melena or hematemesis.
Objective Data
-
Labs:
Laboratory Results
02/15/25
03:14
WBC 3.6 L
Hgb 7.2 L
Hct 23.0 L
Plt Count 110 L
APTT 90.7 H
Sodium 140
Potassium 4.5
Chloride 110 H
Carbon Dioxide 23
BUN 23 H
Creatinine 1.7 H
Glucose 144 H
Calcium 8.4
Total Bilirubin 0.7
AST 16 L
ALT < 10
Alkaline Phosphatase 66
Vital Signs:
Vital Signs
Temp Pulse Resp BP Pulse Ox
97.8 F 74 20 133/54 99
02/15/25 07:59 02/15/25 06:00 02/15/25 07:59 02/15/25 03:02 02/15/25 07:59
I&O
02/14/25 02/15/25 02/16/25
06:59 06:59 06:59
Intake Total 1200 / 1200 1080 / 1080
Balance 1200 / 1200 1080 / 1080
[2025-02-15] MEDS: NOVOLOG FLEXPEN-LOW RESISTANCE SC ×3 (08:34→18:25)
[2025-02-15] MEDS: NEURONTIN 300 MG PO ×3 (08:59→22:03)
[2025-02-15] MEDS: PROTONIX 40 MG PO (09:02)
[2025-02-15] MEDS: COREG 6.25 MG PO ×2 (09:02→21:01)
[2025-02-15] MEDS: IMDUR (EXTENDED RELEASE) 30 MG PO (09:03)
[2025-02-15] MEDS: CRESTOR 20 MG PO (09:03)
[2025-02-15] MEDS: OCUVITE SOFTGEL 1 CAP PO ×2 (09:03→21:00)
[2025-02-15] MEDS: MYFORTIC DELAYED REL. 540 MG PO ×2 (09:04→21:00)
[2025-02-15] MEDS: LOW STRENGTH ASPIRIN 81 MG PO (09:05)
[2025-02-15] MEDS: ZYRTEC 10 MG PO (09:05)
[2025-02-15] MEDS: TIMOPTIC 0.5% OPHTHALMIC SOLUTION 1 DROP LEFT EYE ×2 (09:06→21:09)
[2025-02-15] MEDS: PRED FORTE 1% EYE DROPS 3 DROP LEFT EYE ×3 (09:06→22:03)
[2025-02-15] MEDS: CYANOCOBALAMIN 1000 MCG IM (09:06)
[2025-02-15] MEDS: TRUSOPT 2% OPHTHALMIC SOLUTION 1 DROP LEFT EYE ×2 (09:06→21:09)
--- NOTE | 2025-02-15 09:17 | W.PN.ONC2 ---
Today's Communication / Plan
-
daily cbc
f/u heme stool
Impression
Impression
Anemia, acute on chronic
B12 deficiency
Iron studies appear adequate for hematopoiesis
Renal transplant on chronic immunosuppression
CKD
Acute coronary syndrome
peripheral smear 02/14 was unremarkable.
mild hepatosplenomegaly on ab US
Hx hep B
Blind left eye due to complication of cataract surgery
Plan
Plan
Mycophenolate has a well established association with anemia and leukopenia and tacrolimus has an association with thrombocytopeni
He has renal insufficiency which is likely contributing as well to the anemia, Epo level pending.
Heme-check stools. Denies rectal bleeding but retic count suggests there may be some acute blood loss
We can see pt in outpt setting to discuss possible PEDRO.
No reason from Heme standpoint not to proceed with cardiac cath as planned.
Subjective/Objective
Subjective
no new complaints
denies bleeding
Vital Signs:
Vital Signs
Temp Pulse Resp BP Pulse Ox
97.8 F 72 20 144/56 99
02/15/25 07:59 02/15/25 08:30 02/15/25 07:59 02/15/25 09:02 02/15/25 07:59
Lab Results:
Laboratory Data
WBC 3.6 10^3/uL (4.8-10.8) L 02/15/25 03:14
Hgb 7.2 g/dL (13.0-18.0) L 02/15/25 03:14
Plt Count 110 10^3/uL (130-400) L 02/15/25 03:14
APTT 90.7 Sec (23.4-35.0) H 02/15/25 03:14
eGFR 42.30 02/15/25 03:14
Physical Exam
General: Well Developed and Well Nourished
HEENT: Moist Mucous Membranes; Negative Jaundice
Cardiology: S1, S2
Pulmonary: unlabored
GI: Soft
Musculoskeletal: No Edema
Neurology: Non Focal
Skin: Warm and Dry
[2025-02-15] MEDS: PROGRAF 2 MG PO (10:28)
[2025-02-15] MEDS: SODIUM BICARBONATE 1150 MEQ IV (11:10)
--- NOTE | 2025-02-15 12:11 | CM ---
CM following for DC planning needs.
Met w/ patient + spouse at bedside to complete initial assessment.
Pt. informs that he resides w/ spouse in a private, [facility]. He is functionally indep. at baseline w/ ADLs, mobility without the use of any assisted device.
Pt. has RX plan and uses [facility] for prescription needs.
Antic. DC plan is for home without needs.
CM to follow.
[2025-02-15 12:31] LABS: Glucose - Point of Care 135 mg/dl (70-99)
--- NOTE | 2025-02-15 12:54 | W.PN.NEPH.PH ---
Today's Communication / Plan
-
Bicarb prophylaxis
Assessment/Plan
-
Assessment:
NSTEMI
A-fib with RVR/paroxysmal A-fib
CAD/stent OM 2 drug-eluting 11/13/2022
h/o CABG x 5 vessel 2000
hyperkalemia
donor kidney transplant 2016 at [facility]
Vishal with CKD 3B-baseline cr 1.5-1.7-follows Dr Reyes
Right upper extremity AV fistula working, right lower extremity AV fistula not working
chronic anemia
DM2 with diabetic neuropathy
COPD
Hypothyroidism
GERD
HLD
Hepatitis B hx
Insomnia
History of left eye detached retina chronic blindness
ESRD 2012 beginning hemodialysis
Right arm AV fistula 2014
Thrombocytopenia, chronic
Urethral stricture status post dilatation December 2021
Plan:
A/w cp and likely has NSTEMI, afib RVR
cr down to 1.7 at baseline
recent tac level was 19 on 02/06, labs done on 02/12 (11) but not trough-recheck 02/14 after changing prograf dose 2mg BID on 02/13 night
Pedrito scoring BRANDON risk of 14%, HD risk of 0.12%
LHC with bicarb IVF pending
d/w pt and family at bedside
-
-
Date of Service: February 15, 2025
CC / HPI / ROS
-
Chief Complaint:
Vishal with CKD h/o KTP
History of Present Illness:
cr down to 1.7. Bps table
in sinus now
hb decreasing to 7.4, plt low 115
wt increasing
Review of Systems:
no cp or sob at rest
no n/v
feels well
Labs
-
Labs:
WBC 3.6 10^3/uL (4.8-10.8) L 02/15/25 03:14
RBC 2.61 10^6/uL (4.70-6.10) L 02/15/25 03:14
Hgb 7.2 g/dL (13.0-18.0) L 02/15/25 03:14
Hct 23.0 % (39.0-52.0) L 02/15/25 03:14
Plt Count 110 10^3/uL (130-400) L 02/15/25 03:14
Sodium 140 mmol/L (135-145) 02/15/25 03:14
Potassium 4.5 mmol/L (3.5-5.1) 02/15/25 03:14
Chloride 110 mmol/L (98-107) H 02/15/25 03:14
Carbon Dioxide 23 mmol/L (22-30) 02/15/25 03:14
BUN 23 mg/dl (9-20) H 02/15/25 03:14
Creatinine 1.7 mg/dL (0.7-1.3) H 02/15/25 03:14
eGFR 42.30 02/15/25 03:14
Glucose 144 mg/dl (70-99) H 02/15/25 03:14
Calcium 8.4 mg/dl (8.4-10.2) 02/15/25 03:14
Albumin 3.8 g/dl (3.5-5.0) 02/15/25 03:14
Physical Exam
-
Vital Signs:
Vital Signs
Temp Pulse Resp BP Pulse Ox
98.2 F 72 20 144/56 98
02/15/25 12:36 02/15/25 08:30 02/15/25 12:36 02/15/25 09:02 02/15/25 12:36
Cardiovascular:: Regular rate and rhythm
Respiratory:: Bilateral: CTA
Lung Excursion:: Normal
Abdomen:: Nontender and Soft
Extremity Edema:: None: Bilateral:
Romano Catheter: No
--- NOTE | 2025-02-15 14:43 | PTCARENOTE ---
Pt scheduled to go to laboratory equipment installer, just prior to going he voided some bloody urine. Dr Verdugo's aware and came to see Pt. Dr Frankel ordered 1 unit PRBC's. Pt signed consent with Dr Verdugo's. PRBC infusion began at 1411, VSS pre and 15 min post start
of transfusion. Pt taken to laboratory equipment installer around 1435.
--- NOTE | 2025-02-15 16:18 | ITS.CL.PN ---
[facility] - Procedure Note
Procedure
Procedure Note:
CARDIAC CATHETERIZATION REPORT
Date of Procedure: 02/15/2025
Referring: Dr. Aguilar Parnell MD
Indication: NSTEMI
PROCEDURE(S)
1. left heart catheterization
2. coronary angiography
3. bypass graft angiography
ACCESS: 6F right common femoral artery (closure: manual hemostasis)
CATHETERS
1. 6F JR4
2. 6F JL3.5
MODERATE SEDATION: 45 minutes of moderate sedation was utilized. An independent medical videographer was present to assist with and help manage the patient's level of consciousness and physiologic status.
HEMODYNAMIC DATA
LV 131/50 (EDP 26) mmHg
AO 129/51 (mean 82) mmHg
CORONARY ANGIOGRAPHY
Dominance: Right
LM: severely diseased
LAD: ostially occluded
LCx: ostially occluded
RCA: occluded in the mid vessel
BYPASS GRAFT ANGIOGRAPHY:
CONNOLLY-LAD: the CONNOLLY is taken as a pedicle and forms an anastomosis with the mid-LAD. There is excellent runoff antegrade to the apex and retrograde back to a moderate caliber diagonal branch.
Rad-OM: ostially occluded
SVG-diag: known to be occluded and no selectively engaged
[id number]: widely patient supplying excellent runoff to the RPDA and RPL system. There are R-L collaterals seen to the OM branch previously supplied by the newly occluded Rad-OM.
RADIATION: dose 379 mGy; DAP 20.5 Gy*cm2; fluoroscopy time 10.2 min
CONCLUSIONS
1. likely culprit vessel occlusion of the Rad-OM graft, otherwise unchanged anatomy from 2022 cath with patent [id number] and patent CONNOLLY-LAD. The Rad-OM graft has multiple prior stents, is ostially occluded, and not a candidate for
re-intervention.
2. moderately elevated LV filling pressure and no aortic stenosis
RECOMMENDATIONS
1. aggressive secondary prevention of CAD
2. anticoagulation for newly diagnosed Afib, can initiate Eliquis tonight
Copy to: Raman Gilmore MD, PhD (light air defense artillery crewmember); Alphonso Sheffield MD (PCP)
Signed: Ilia Frankel MD, PhD
--- NOTE | 2025-02-15 16:45 | PTCARENOTE ---
1625 rec'd pt post cardiac cath, A,A+O, denies pain, L femoral dsg D+I. Pt has unit of PRBC's infusing. VSS.
--- NOTE | 2025-02-15 17:06 | W.PN.CD ---
Today's Communication / Plan
-
radial graft occluded on graft, no role for intervention
resume Eliquis tonight 10 PM
likely home tomorrow
Impression / Plan
-
NSTEMI:
-known CAD with CABG and stenting.
-trop peak 8.550.
-echo 02/12/25 with EF 65-70%, wall motion is c/w conduction abnormality, normal RV, no sig change from echo 11/2022.
-continue IV Heparin. Hold Eliquis.
-continue ASA, statin, BB.
-cath today with occluded radial-OM graft, no intervention
Acute on chronic anemia
-Elevated retic noted
-some mild hematuria this AM which the patient states is his common for him and less severe than usual
-heme consulted
PAF:
-came in with AFIB with RVR, now back in NSR as of 9:30a 02/13/2025
-cont coreg
-start eliquis this evening 10 PM (6 hours after sheath out)
CKD, hx renal transplant:
-Cr stable
-nephro consulted
Physical Exam
Vital Signs/Labs
Vital Signs
Temp Pulse Resp BP Pulse Ox
36.5 C 71 16 136/58 100
02/15/25 16:36 02/15/25 16:36 02/15/25 16:36 02/15/25 16:36 02/15/25 16:36
02/14/25 02/15/25 02/16/25
06:59 06:59 06:59
Actual Weight 77 kg 77.3 kg
02/15/25 03:14
02/15/25 03:14
APTT 90.7 Sec (23.4-35.0) H 02/15/25 03:14
Magnesium 2.1 mg/dl (1.6-2.3) 02/12/25 11:16
Triglycerides 178 mg/dl (10-149) H 02/13/25 02:28
LDL Cholesterol, Calc 3 mg/dl 02/13/25 02:28
VLDL Cholesterol, Calc 35 mg/dl (0-30) H 02/13/25 02:28
HDL Cholesterol 19 mg/dl 02/13/25 02:28
TSH 3.05 uIU/ml (0.47-4.68) 02/12/25 11:16
LAB Results
02/12/25 02/12/25 02/13/25
19:26 23:22 02:28
Troponin I 8.550 H* D Cancelled 5.070 H* D
Physical Exam
Constitutional: Comfortable
Cardiovascular: Rhythm & rate is regular
Respiratory: Respiratory effort normal
Neuro/Psych: AO x 3
Data Reviewed
-
Date of Service: February 15, 2025
Medical Decision Making: Reviewed Test Results
EKG: Tracing Personally Visualized and interpreted
Echo: Tracing Personally Visualized and interpreted
X-Ray/CT/US/MRI/NUC/PET: Image Personally Visualized and interpreted
Medical Tests (PFT, Pathology etc): Image Personally Visualized and interpreted
Labs: Labs Reviewed by me
--- NOTE | 2025-02-15 17:43 | PTCARENOTE ---
PRBC transfusion complete, Pt rodolfo well, no transfusion reaction noted. VSS
[2025-02-15 18:11] LABS: Glucose - Point of Care 130 mg/dl (70-99)
[2025-02-15] MEDS: PROGRAF PO ×2 (21:00→22:04)
[2025-02-15] MEDS: AMBIEN 10 MG PO (21:09)
--- NOTE | 2025-02-15 21:30 | PTCARENOTE ---
Pt scheduled to receive 2mg tacrolimus tonight, tacrolimus toxicity level 23.4 from this afternoons lab results, distribution center assistant nephrology Dr. Curiel made aware, ordered tonight dose to be held and also hold AM dose indefinitely, then will address it
tomorrow. Pt made aware on the POC and in agreement, call yeboah within reach.
[2025-02-15 21:33] LABS: Glucose - Point of Care 156 mg/dl (70-99)
[2025-02-15] MEDS: LANTUS 0.02 UNITS SC (22:02)
[2025-02-15] MEDS: ELIQUIS 5 MG PO (22:03)
[2025-02-15 22:23] LABS: Hematocrit 24.1 % (39.0-52.0); Hemoglobin 7.7 g/dL (13.0-18.0)
--- NOTE | 2025-02-16 00:35 | PTCARENOTE ---
Assumed care on pt at change of shift, post cardiac cath today, L femoral site started bleeding when pt completed bed rest and was ambulating to bathroom. Brought pt back to bed, manual pressure applied x10min, pressure dressing reapplied to right
femoral site, distal pulses +, no c/o pain or loss of sensation from LE, VSS. Pox 98% RA. SR on the monitor, HR 70's, no c/o cp or SOB.
Pt voiding bright red blood hematuria, stating that it has happened in the past d/t a procedure and scarring left from it. call center support representative INTERNAL SECURITY MANAGER made aware, H&H ordered and sent to lab, urology consulted. Call yeboah within reach.
--- NOTE | 2025-02-16 01:07 | W.PN.UPDATE ---
Update Note
Progress Note Update
Reported by the nursing staff that the patient is voiding bright red blood. Patient was on heparin and restarted on Eliquis tonight. Vital signs stable, Recheck hgb level is 7.7. Will monitor h&h.
- Urology consult placed for hematuria and Will hold Eliquis till evaluated and decided by morning team.
- Tacrolimus back 23.4, currently on 1mg BID. Tacrolimus dose to be hold tonight and morning as recommended by nephrology.
[2025-02-16 02:47] VITALS: BP 131/61; BMI 24.1
[2025-02-16 04:18] LABS: Hematocrit 24.1 % (39.0-52.0); Hemoglobin 7.7 g/dL (13.0-18.0); Mean Corp Hgb Conc. 32.0 g/dL (33.0-37.0); Mean Corpuscular Volume 88.3 fL (80.0-94.0); Nucleated Red Blood Cells % 0 % (-); Platelet Count 115 10^3/uL (130-400); Red Cell Dist. Width 16.9 % (11.5-14.5)
[2025-02-16 04:45] LABS: Blood Urea Nitrogen 23 mg/dl (9-20); Calcium 8.1 mg/dl (8.4-10.2); Carbon Dioxide 25 mmol/L (22-30); Chloride 110 mmol/L (98-107); Estimated Creatinine Clearance 41 ml/min; Glucose 125 mg/dl (70-99); Potassium 4.3 mmol/L (3.5-5.1); Sodium 140 mmol/L (135-145); eGFR 42.30
[2025-02-16] MEDS: SYNTHROID 50 MCG PO (05:22)
[2025-02-16 08:26] LABS: Glucose - Point of Care 123 mg/dl (70-99)
--- NOTE | 2025-02-16 08:36 | W.PN.HOSP.TC ---
Today's Communication/Plan
-
Discharge planning today
Assessment / Plan
Assessment / Plan
Physical exam:
General: No acute distress
HEENT: Normocephalic, Atraumatic and Moist Mucous Membranes
Respiratory: Clear to Auscultation; Negative Wheezes, Rales or Rhonchi
Cardiac: Regular Rhythm and S1/S2
GI: Soft, Nontender and Nondistended
Musculoskeletal: No Clubbing, No Cyanosis and No Edema
Neuro: Awake, Alert and Oriented, no neurological deficits
Psych: Calm
A/P:
Acute NSTEMI:
Cardiac cath yesterday reviewed--> culprit OM graft and recommended aggressive medical management and not a candidate for re-intervention.
Continue aspirin beta-blockers and statins
Cardiology consult appreciated
Discussed with at bedside prior
Plan to discharge today
Paroxysmal A-fib:
Back to normal sinus rhythm
Can restart Eliquis tonight or tomorrow morning
On Coreg 6.25 mg twice a day
Pancytopenia including anemia:
Hemoglobin 7.7 today
Hemoglobin has remained relatively stable. Received some blood transfusion by cardiology
Hematology consult appreciated-hematology noticed his anemia is multifactorial as stated on her notes and okay to proceed with cardiac cath.
Hematuria:
Urology consulted and cleared for discharge and can restart oral anticoagulation.
B12 deficiency:
On B12 supplementation-will switch to oral upon discharge
Thrombocytopenia:
Platelet counts 115 today
Hematology consult appreciated
CKD stage III/History of renal transplant:
Off IV fluid
Creatinine 1.7 today
Nephrology consult appreciated
Continue mycophenolate 540 mg twice a day, tacrolimus decreased to 1 mg p.o. every 12 hours
Hyperkalemia:
Resolved
Hypothyroidism:
Continue thyroid replacement
Diabetes mellitus:
Insulin mgmt
Continue monitor blood sugars
Other medical problems:
Hypertension
Hyperlipidemia
GERD
COPD
Detached retina with left eye blindness
Chronic anemia
History hepatitis B in the past
Insomnia
History of end-stage renal disease in the past
Thrombocytopenia
History of urethral stricture
DVT prophylaxis:
Heparin drip
CODE STATUS:
Full code
Anticipated Discharge: Today
Subjective/Interval History
-
Date of Service: February 16, 2025
Overnight urology was consulted. Patient stable and no more than his chronic hematuria. He denies chest pain or shortness of breath. Afebrile
Objective Data
-
Labs:
Laboratory Results
02/15/25 02/16/25
22:00 03:37
WBC 2.9 L
Hgb 7.7 L 7.7 L
Hct 24.1 L 24.1 L
Plt Count 115 L
Sodium 140
Potassium 4.3
Chloride 110 H
Carbon Dioxide 25
BUN 23 H
Creatinine 1.7 H
Glucose 125 H
Calcium 8.1 L
Vital Signs:
Vital Signs
Temp Pulse Resp BP Pulse Ox
98.4 F 70 18 131/61 100
02/16/25 08:20 02/16/25 08:20 02/16/25 08:20 02/16/25 02:47 02/16/25 08:20
I&O
02/15/25 02/16/25 02/17/25
06:59 06:59 06:59
Intake Total 1080 / 1080 490 / 490
Output Total 200 / 200
Balance 1080 / 1080 290 / 290
--- NOTE | 2025-02-16 08:36 | W.DCSUMMARY ---
Discharge Summary
Discharge Data
Date of Admission: 02/12/25
Date of Discharge: 02/16/25
Total time spent discharging patient (in min): 42
-
Pending Results: No
Hospital Course
Patient is 74 years old male with history of CAD, renal transplant on mycophenolate and tacrolimus, CKD, A-fib, hypertension, hyperlipidemia, diabetes mellitus, came into the hospital with chest pain and elevated troponin and A-fib RVR. Cardiology
consulted. Patient was started on heparin drip and ACS protocol. His troponin peaked to 8.5. He is Eliquis was placed on hold and started on Cardizem drip. Initially he was placed also on Cardizem drip but this was subsequently discontinued and
placed on his oral beta-blockers. Nephrology consulted and he was given IV fluids precath for renal protection. Renal function has remained stable. He did have mild worsening of his chronic anemia and thrombocytopenia and hematology consulted.
Hematology evaluated anemia thoroughly and felt that he could proceed with cardiac catheterization and he was started on B12 supplementation and will continue to follow-up as outpatient for further recommendations. Cardiology took him for cardiac
cath on 02/15 and revealed no obstructive CAD but unable to revascularize so recommended continue aggressive medical management. He also was evaluated by urology for hematuria and no evidence to hold anticoagulation. He will continue to follow-up
with hematology as outpatient as well as the rest of the specialist. Otherwise he is hemodynamically stable, chest pain-free, and feels back to his baseline. He will be discharged in relatively stable condition today.
Discharge duration: 42 minutes
Discharge Plan
-
Patient Disposition: Home (Routine Discharge)
Discharge Diagnosis/Procedures: Acute non-ST elevation myocardial infarction. Paroxysmal atrial fibrillation. Chronic kidney disease stage IIIb. Anemia. Thrombocytopenia.
s/p cardiac catheterization
Diet: Low Cholesterol, 2 Gram Sodium and Diabetic, Carb Controlled
Activity: As tolerated
Blood Work: Please PCP to order CBC, BMP within 1 week
Stand Alone Forms: DC Instructions- Cath/EP Lab
Referrals:
Seth Gilmore MD [Active, Cardiology] - 04/28/25 4:00 pm
Sondra Deng MD [Active, Hematology / Oncology] - in one to two weeks
Alphonso Sheffield MD [Family Provider, Family Practice] - in less than 1 week
Elliot Andrade MD [Active, Urology] - in two to four weeks
Carlos Reyes MD [Active, Nephrology] - in one to two weeks
Prescriptions:
New
cyanocobalamin (vitamin B-12) 1,000 mcg capsule
1,000 mcg PO DAILY Qty: 30 0RF
Continued
dorzolamide-timolol 22.3-6.8 mg/mL Drops
1 drp LEFT EYE BID
insulin lispro [Humalog U-100 Insulin] 100 unit/mL Solution
1 sliding scale dose SC AC
rosuvastatin 20 mg Tablet
20 mg PO DAILY
Dulera 200-5 mcg/actuation Hfa Aerosol Inhaler
2 puff INHALATION R BIDPRN PRN (Reason: cough)
PreserVision AREDS-2 250-90-40-1 mg Tablet,Chewable
1 tab PO BID
gabapentin 300 mg capsule
300 mg PO TID
gabapentin 600 mg Tablet
300 mg PO HSPRN PRN (Reason: mild pain)
aspirin 81 mg Tablet
81 mg PO DAILY
pantoprazole 40 mg tablet,delayed release (DR/EC)
40 mg PO DAILY Qty: 90 10RF
acetaminophen [Tylenol] 325 mg Tablet
975 mg PO DAILYPRN PRN (Reason: mild pain)
carvedilol [Coreg] 6.25 mg Tablet
6.25 mg PO BID
cetirizine [Zyrtec] 10 mg Tablet
10 mg PO DAILY
isosorbide mononitrate 30 mg Tablet Extended Release 24 Hr
30 mg PO DAILY
prednisolone acetate 1 % Drops,Suspension
3 drp LEFT EYE TID
levothyroxine [Synthroid] 50 mcg Tablet
50 mcg PO HS
zolpidem [Ambien] 10 mg Tablet
10 mg PO HSPRN PRN (Reason: sleep)
mycophenolate sodium 180 mg tablet,delayed release (DR/EC)
540 mg PO BID
insulin glargine [Lantus Solostar U-100 Insulin] 100 unit/mL (3 mL) Insulin Pen
2 unit SC HS
Held
Eliquis 5 mg Tablet
5 mg PO BID
Hold Instructions: Resume on 02/17/25.
tacrolimus [Prograf] 1 mg Capsule
1 mg PO Q12H Qty: 0
Hold Instructions: Resume on 02/17/25.
Discharge Orders:
Discharge Patient (As Directed); Ordered 02/16/25
Ordered By: Adam Handley
Care Plan Goals
Care Plan Goals:
Problem: Readiness for enhanced knowledge related to diagnosis and treatment plan
Goal: Understand your diagnosis and treatment plan needs, including medications if applicable.
Instructions: Know your diagnosis, underlying causes and treatment plan options, including medications if applicable. Consult with your health care team to learn about your diagnosis and treatment plan, including medications if applicable.
Discharge Date and Time
Print Language: TURKMEN
--- NOTE | 2025-02-16 08:43 | CONS.URO ---
Consultation
-
Date/Time Consultation Performed: 02/16/2025 0735
Performing Provider: Raymond
Reason for Consultation: hematuria
Medical History
History of Present Illness
02/12/2025 admitted via ED with 'cardiac symptoms' -- left chest and should pain
Dr Mcgee' outpatient note from 10/2024:
'Patient has a history of urethral trauma sustained at the time of Romano catheter removal at [facility] October 2021 after having been transferred there following a minimally traumatic fall
There was no obvious reason for placement of the Romano catheter by the patient's report
He was seen in ER 11/24/21 for diminished urine stream
He underwent cystoscopy with dilation of meatal stenosis and stricture of the fossa navicularis 12/18/23 ([place])
He was referred to Dr. Dumont for definitive management but never followed through with that recommendation
---
He returned here 09/21/24 for follow up evaluation
He reports no irritative or obstructive voiding symptoms
He has has occult pyuria and hematuria on several urinalyses, w/o evidence of UTI until urine culture 09/29/24 confirmed an Enterococcal infection.'
Patient reports that gross hematuria escalated after admission due to anticoagulants, 'but it's gotten less and I'm going fine'.
Allergies/Home Medications
Allergies
Allergy/AdvReac Type Severity Reaction Status Date / Time
Penicillins Allergy Hives A Verified 02/12/25 10:33
TEENAGER
pollen extracts Allergy Nasal Verified 02/12/25 18:39
congestion
- seasonal
Home Medications
�Medication �Instructions �Recorded �Confirmed �Type
apixaban 5 mg tablet (Eliquis) 5 mg PO BID Blood clot 03/25/22 02/12/25 History
prevention/tx
dorzolamide 22.3 mg-timolol 6.8 1 drp LEFT EYE BID Eye condition 03/25/22 02/12/25 History
mg/mL eye drops
insulin lispro 100 unit/mL 1 sliding scale dose SC AC Diabetes 03/25/22 02/12/25 History
subcutaneous solution (Humalog
U-100 Insulin)
mometasone-formoterol HFA 200 2 puff inhalation R BIDPRN PRN 03/25/22 02/12/25 History
mcg-5 mcg/actuation aerosol cough
inhaler (Dulera)
rosuvastatin 20 mg tablet 20 mg PO DAILY High cholesterol 03/25/22 02/12/25 History
vit C 250 mg-E 90 mg-zinc 40 1 tab PO BID Supplement 03/25/22 02/12/25 History
mg-copper 1 [id number] chew
tablet (PreserVision AREDS-2)
tacrolimus 1 mg capsule, 1 mg PO Q12H Transplant ##0 03/30/22 02/12/25 History
immediate-release (Prograf)
aspirin 81 mg tablet 81 mg PO DAILY Blood Clot 11/13/22 02/12/25 History
Prevention/Tx
gabapentin 300 mg capsule 300 mg PO TID NEUROPATHIC PAIN 11/13/22 02/12/25 History
gabapentin 600 mg tablet 300 mg PO HSPRN PRN mild pain 11/13/22 02/12/25 History
pantoprazole 40 mg tablet,delayed 40 mg PO DAILY #90 tabs 11/13/22 02/12/25 Rx
release
acetaminophen 325 mg tablet 975 mg PO DAILYPRN PRN mild pain 02/12/25 02/12/25 History
(Tylenol)
carvedilol 6.25 mg tablet (Coreg) 6.25 mg PO BID Blood Pressure 02/12/25 02/12/25 History
cetirizine 10 mg tablet (Zyrtec) 10 mg PO DAILY Allergies 02/12/25 02/12/25 History
insulin glargine 100 unit/mL (3 2 unit SC HS Diabetes 02/12/25 02/12/25 History
mL) subcutaneous pen (Lantus
Solostar U-100 Insulin)
isosorbide mononitrate 30 mg 30 mg PO DAILY Heart 02/12/25 02/12/25 History
tablet,extended release 24 hr Disease/Condition
levothyroxine 50 mcg tablet 50 mcg PO HS Thyroid 02/12/25 02/12/25 History
(Synthroid)
mycophenolate sodium 180 mg 540 mg PO BID Transplant 02/12/25 02/12/25 History
tablet,delayed release
prednisolone acetate 1 % eye 3 drp LEFT EYE TID Eye Condition 02/12/25 02/12/25 History
drops,suspension
zolpidem 10 mg tablet (Ambien) 10 mg PO HSPRN PRN sleep 02/12/25 02/12/25 History
Physical Exam
Vital Signs
Vital Signs
Temp Pulse Resp BP Pulse Ox
98.4 F 70 18 131/61 100
02/16/25 08:20 02/16/25 08:20 02/16/25 08:20 02/16/25 02:47 02/16/25 08:20
Lab / Testing Results
Laboratory Results
02/16/25 03:37
02/16/25 03:37
Physical Exam
adult male in ICU bed
General: No Apparent Distress
Neuro: Awake and Alert
Psych: Calm
Assessment / Plan
-
Long h/o gross hematuria related to urethral stricture disease -- potentiated by anti-coagulation
Hematuria is diminishing and patient is voiding satisfactorily.
Rec: no inpatient evaluation indicated
patient has outpatient appointment with Dr Phoenix already scheduled
Data Reviewed
-
Lab Data: Labs Reviewed
Old Records: Reviewed
[2025-02-16] MEDS: OCUVITE SOFTGEL 1 CAP PO (08:47)
[2025-02-16] MEDS: CRESTOR 20 MG PO (08:47)
[2025-02-16] MEDS: LOW STRENGTH ASPIRIN 81 MG PO (08:48)
[2025-02-16] MEDS: PROTONIX 40 MG PO (08:48)
[2025-02-16] MEDS: NEURONTIN 300 MG PO (08:48)
[2025-02-16] MEDS: ELIQUIS 5 MG PO (08:49)
[2025-02-16] MEDS: COREG 6.25 MG PO (08:49)
[2025-02-16] MEDS: ZYRTEC 10 MG PO (08:50)
[2025-02-16] MEDS: PRED FORTE 1% EYE DROPS 3 DROP LEFT EYE (08:51)
[2025-02-16] MEDS: TRUSOPT 2% OPHTHALMIC SOLUTION 1 DROP LEFT EYE (08:54)
[2025-02-16] MEDS: CYANOCOBALAMIN 1000 MCG SC (08:55)
[2025-02-16] MEDS: TIMOPTIC 0.5% OPHTHALMIC SOLUTION 1 DROP LEFT EYE (08:55)
[2025-02-16] MEDS: MYFORTIC DELAYED REL. 540 MG PO (08:56)
[2025-02-16] MEDS: IMDUR (EXTENDED RELEASE) 30 MG PO (08:56)
[2025-02-16] MEDS: NOVOLOG FLEXPEN-LOW RESISTANCE SC (08:56)
--- NOTE | 2025-02-16 09:26 | W.PN.ONC2 ---
Today's Communication / Plan
-
Discharge planning -OP follow up will be arranged upon discharge
Impression
Impression
Anemia, acute on chronic
B12 deficiency
Iron studies appear adequate for hematopoiesis
Renal transplant on chronic immunosuppression
hematuria
CKD
NSTEMI/CAD/CABG/PAF
peripheral smear 02/14 was unremarkable.
mild hepatosplenomegaly on ab US
Hx hep B
Blind left eye due to complication of cataract surgery
Plan
Plan
Mycophenolate has a well established association with anemia and leukopenia and tacrolimus has an association with thrombocytopenia -management per nephrology
He has renal insufficiency which is likely contributing as well to the anemia, Epo level pending.
cardiology following
Has outpatient follow up with Dr. Mcgee to continue surveillance of hematuria related to urethral stricture disease
We can see pt in outpt setting to discuss possible PEDRO.
Subjective/Objective
Subjective
no new complaints
hematuria overnight resolved
Vital Signs:
Vital Signs
Temp Pulse Resp BP Pulse Ox
98.4 F 70 18 131/61 100
02/16/25 08:20 02/16/25 08:20 02/16/25 08:20 02/16/25 02:47 02/16/25 08:20
Lab Results:
Laboratory Data
WBC 2.9 10^3/uL (4.8-10.8) L 02/16/25 03:37
Hgb 7.7 g/dL (13.0-18.0) L 02/16/25 03:37
Plt Count 115 10^3/uL (130-400) L 02/16/25 03:37
APTT 90.7 Sec (23.4-35.0) H 02/15/25 03:14
eGFR 42.30 02/16/25 03:37
Physical Exam
HEENT: Moist Mucous Membranes and Other (blind left eye); No Jaundice
Pulmonary: Other (unlabored)
GI: Soft
Extremities: Pulses Present
Neuro: Non Focal
Orders
Orders
Orders From Last 24 Hours
02/16/25 08:00
Cyanocobalamin 1,000 mcg SC DAILY
--- NOTE | 2025-02-16 10:07 | W.PN.NEPH.PH ---
Today's Communication / Plan
-
Patient for tacrolimus trough level tomorrow to be forwarded to Dr. Reyes of our practice
Hold tacrolimus today
Discharge on 1 mg p.o. twice daily to be started tomorrow morning
Assessment/Plan
-
Assessment:
NSTEMI
A-fib with RVR/paroxysmal A-fib
CAD/stent OM 2 drug-eluting 11/13/2022
h/o CABG x 5 vessel 2000
hyperkalemia
donor kidney transplant 2016 at [facility]
Vishal with CKD 3B-baseline cr 1.5-1.7-follows Dr Reyes
Right upper extremity AV fistula working, right lower extremity AV fistula not working
chronic anemia
DM2 with diabetic neuropathy
COPD
Hypothyroidism
GERD
HLD
Hepatitis B hx
Insomnia
History of left eye detached retina chronic blindness
ESRD 2012 beginning hemodialysis
Right arm AV fistula 2014
Thrombocytopenia, chronic
Urethral stricture status post dilatation December 2021
Plan:
For discharge today
A/w cp and likely has NSTEMI, afib RVR
cr down to 1.7 at baseline
recent tac level was 19 on 02/06, labs done on 02/12 (11) but not trough-recheck 02/14 after changing prograf dose 2mg BID on 02/13 night
Tacrolimus level from date 02/15/25 23.4
Hold tacrolimus and recheck level in am 02/17/25 (must be 12hr trough): can be performed at outpatient to be sent to Dr. Reyes
at discharge patient will be initiated on tacrolimus 1mg BID (hold tonight's dose) This was discussed with patient
Macro hematuria overnight: consulted
Pedrito scoring BRANDON risk of 14%, HD risk of 0.12%
LHC with bicarb IVF: no PCI on 02/15/25
d/w pt and family at bedside
-
-
Date of Service: February 16, 2025
CC / HPI / ROS
-
Chief Complaint:
Vishal with CKD h/o KTP
History of Present Illness:
cr down to 1.7. Bps table
in sinus now
hb decreasing to 7.7 , plt low 115
wt increasing
Review of Systems:
no cp or sob at rest
no n/v
feels well
Labs
-
Labs:
WBC 2.9 10^3/uL (4.8-10.8) L 02/16/25 03:37
RBC 2.73 10^6/uL (4.70-6.10) L 02/16/25 03:37
Hgb 7.7 g/dL (13.0-18.0) L 02/16/25 03:37
Hct 24.1 % (39.0-52.0) L 02/16/25 03:37
Plt Count 115 10^3/uL (130-400) L 02/16/25 03:37
Sodium 140 mmol/L (135-145) 02/16/25 03:37
Potassium 4.3 mmol/L (3.5-5.1) 02/16/25 03:37
Chloride 110 mmol/L (98-107) H 02/16/25 03:37
Carbon Dioxide 25 mmol/L (22-30) 02/16/25 03:37
BUN 23 mg/dl (9-20) H 02/16/25 03:37
Creatinine 1.7 mg/dL (0.7-1.3) H 02/16/25 03:37
eGFR 42.30 02/16/25 03:37
Glucose 125 mg/dl (70-99) H 02/16/25 03:37
Calcium 8.1 mg/dl (8.4-10.2) L 02/16/25 03:37
Albumin 3.8 g/dl (3.5-5.0) 02/15/25 03:14
Physical Exam
-
Vital Signs:
Vital Signs
Temp Pulse Resp BP Pulse Ox
98.4 F 70 18 131/61 100
02/16/25 08:20 02/16/25 08:20 02/16/25 08:20 02/16/25 02:47 02/16/25 08:20
Cardiovascular:: Regular rate and rhythm
Respiratory:: Bilateral: CTA
Lung Excursion:: Normal
Abdomen:: Nontender and Soft
Extremity Edema:: None: Bilateral:
Romano Catheter: No
[2025-02-16 12:50] LABS: Glucose - Point of Care 204 mg/dl (70-99)
--- NOTE | 2025-02-16 13:15 | PTCARENOTE ---
Pt reported urine clearing up, now yellow. R femoral dsg D+I, denies pain, denies SOB. Ambulating in room, rodolfo well.
[2025-02-16] MEDS: NOVOLOG FLEXPEN-LOW RESISTANCE 2 UNITS SC (13:30)
== END 2025-02-16 13:55 | disposition home or self-care (01) | DRG 281 ==
LOC: IVU 15:13
PROVIDERS: Clinical Nurse Specialist Family Health; Nurse Practitioner; Nurse Practitioner Family; Registered Nurse; Student in an Organized Health Care Education/Training Program; ADMITTING PHYSICIAN Internal Medicine; ATTENDING PHYSICIAN Hospitalist; CONSULT PHYSICIAN Internal Medicine; CONSULT PHYSICIAN Internal Medicine Hematology & Oncology; CONSULT PHYSICIAN Specialist; EMERGENCY PHYSICIAN Emergency Medicine; FAMILY PHYSICIAN Family Medicine
PROC: 4A023N7 Measurement of Cardiac Sampling and Pressure, Left Heart, Percutaneous Approach (ICD-10-PCS; 2025-02-15)
PROC: B2111ZZ Fluoroscopy of Multiple Coronary Arteries using Low Osmolar Contrast (ICD-10-PCS; 2025-02-15)
PROC: B2121ZZ Fluoroscopy of Single Coronary Artery Bypass Graft using Low Osmolar Contrast (ICD-10-PCS; 2025-02-15)
DX: I21.4 Non-ST elevation (NSTEMI) myocardial infarction (principal); D61.818 Other pancytopenia; Z94.0 Kidney transplant status; D84.821 Immunodeficiency due to drugs; I48.0 Paroxysmal atrial fibrillation; I12.9 Hypertensive chronic kidney disease with stage 1 through stage 4 chronic kidney disease, or unspecified chronic kidney disease; E11.22 Type 2 diabetes mellitus with diabetic chronic kidney disease; N18.32 Chronic kidney disease, stage 3b; I1A.0 Resistant hypertension; E11.649 Type 2 diabetes mellitus with hypoglycemia without coma; I25.10 Atherosclerotic heart disease of native coronary artery without angina pectoris; Z95.1 Presence of aortocoronary bypass graft; E11.40 Type 2 diabetes mellitus with diabetic neuropathy, unspecified; K21.9 Gastro-esophageal reflux disease without esophagitis; J44.9 Chronic obstructive pulmonary disease, unspecified; H54.62 Unqualified visual loss, left eye, normal vision right eye; Z88.0 Allergy status to penicillin; E78.00 Pure hypercholesterolemia, unspecified; Z79.890 Hormone replacement therapy; Z79.01 Long term (current) use of anticoagulants; E87.5 Hyperkalemia; E03.9 Hypothyroidism, unspecified; G47.00 Insomnia, unspecified; R31.9 Hematuria, unspecified; E53.8 Deficiency of other specified B group vitamins; Z95.5 Presence of coronary angioplasty implant and graft; K59.00 Constipation, unspecified; Z79.4 Long term (current) use of insulin; Z79.60 Long term (current) use of unspecified immunomodulators and immunosuppressants; Z79.82 Long term (current) use of aspirin; Z79.899 Other long term (current) drug therapy; Z82.49 Family history of ischemic heart disease and other diseases of the circulatory system; Z84.1 Family history of disorders of kidney and ureter; Z87.891 Personal history of nicotine dependence
CPT/HCPCS: 71046; 76700; 80048; 80053; 80061; 80076; 80197; 82607; 82668; 82728; 82746; 82962; 83010; 83036; 83540; 83550; 83615; 83735; 84443; 84484; 85014; 85018; 85025; 85027; 85045; 85384; 85652; 85730; 86850; 86900; 86901; 86920; 93005; 93306; 93459; 96365; 96375; 99152; 99153; 99291; J7030; P9016; Q9967

== ENCOUNTER → 2025-02-19 11:42 | Outpatient (REF) | payer MEDICARE, OTHER, SELFPAY ==
[2025-02-19 12:31] LABS: Hematocrit 28.3 % (39.0-52.0); Hemoglobin 8.7 g/dL (13.0-18.0); Mean Corp Hgb Conc. 30.7 g/dL (33.0-37.0); Mean Corpuscular Volume 90.1 fL (80.0-94.0); Nucleated Red Blood Cells % 0 % (-); Platelet Count 106 10^3/uL (130-400); Red Cell Dist. Width 16.9 % (11.5-14.5)
[2025-02-19 13:17] LABS: Blood Urea Nitrogen 17 mg/dl (9-20); Calcium 8.9 mg/dl (8.4-10.2); Carbon Dioxide 24 mmol/L (22-30); Chloride 108 mmol/L (98-107); Glucose 142 mg/dl (70-99); Potassium 5.2 mmol/L (3.5-5.1); Sodium 138 mmol/L (135-145); eGFR 42.30
== END ==
LOC: REG 11:42
PROVIDERS: ATTENDING PHYSICIAN Family Medicine
DX: I25.810 Atherosclerosis of coronary artery bypass graft(s) without angina pectoris (principal); D50.0 Iron deficiency anemia secondary to blood loss (chronic)
CPT/HCPCS: 36415; 80048; 85025

== ENCOUNTER 2025-04-19 17:02 | Emergency (ER) | payer MEDICARE, OTHER, SELFPAY ==
[2025-04-19 17:02] VITALS: BMI 24.6
[2025-04-19 17:03] VITALS: BP 159/60
[2025-04-19 17:24] LABS: Hematocrit 33.3 % (39.0-52.0); Hemoglobin 10.3 g/dL (13.0-18.0); Mean Corp Hgb Conc. 30.9 g/dL (33.0-37.0); Mean Corpuscular Volume 88.1 fL (80.0-94.0); Nucleated Red Blood Cells % 0 % (-); Platelet Count 115 10^3/uL (130-400); Red Cell Dist. Width 16.2 % (11.5-14.5)
[2025-04-19 17:43] LABS: ALT (SGPT) 14 U/L (0-50); AST (SGOT) 19 U/L (17-59); Albumin 4.6 g/dl (3.5-5.0); Alkaline Phosphatase 66 U/L (38-126); Blood Urea Nitrogen 20 mg/dl (9-20); Calcium 8.4 mg/dl (8.4-10.2); Carbon Dioxide 23 mmol/L (22-30); Chloride 108 mmol/L (98-107); Glucose 199 mg/dl (70-99); Potassium 5.9 mmol/L (3.5-5.1); Sodium 137 mmol/L (135-145); Total Protein 7.0 g/dl (6.3-8.2); eGFR 45.21
[2025-04-19 21:51] VITALS: BP 154/64
[2025-04-19 22:43] VITALS: BP 155/60
--- NOTE | 2025-04-19 22:52 | ED.GENMED ---
History of Present Illness
General
Chief Complaint: Abnormal Lab Value
Time Seen by Provider: 04/19/25 22:25
History of Present Illness
History of Present Illness:
75-year-old male with history of A-fib on Eliquis and chronic kidney disease status post renal transplant in 2017 at [facility] presents due to abnormal outpatient labs. Had routine labs showing a potassium level of 6.0. Repeat in the emergency
department is 5.9. He denies any symptoms. No recent medication changes. He is on tacrolimus and has not had levels drawn in quite some time. Denies any fevers or chills
Past History
Past History
ED Past Medical History: CAD, Hypercholesterolemia, IDDM, Renal failure, Hypothyroidism and Other (Kidney transplant)
ED Past Surgical History: Appendectomy, Cardiac, Urological (Kidney transplant) and Other (Left eye surgery, AV fistula)
Social History
Tobacco: Non-smoker
Living: with family
Review of Systems
Review of Systems
Allergies reviewed?: Yes
All Other Systems: ROS reviewed and negative except as documented in HPI and ROS
Phy Exam
Physical Exam
Physical Exam:
GEN: Well appearing, NAD, WDWN
HEENT: Oral mucosa moist, no scleral icterus
Cardiac: Regular rate
Lung: No respiratory distress, no tachypnea
MSK: No gross deformity or injuries
Skin: Good color, no pallor or jaundice, no rashes
Neuro: AO x3, moves all extremities freely
Psych: Calm, cooperative
Course
Orders/Labs/Results
Orders:
Orders
04/19/25 17:06
Electrocardiogram (*1) Urgent
Reason for Study: Chest Pain
EKG- Treatment ONCE
04/19/25 17:15
Complete Blood Count/With Diff Urgent
Comprehensive Metabolic Panel Urgent
04/19/25 22:51
Sodium Zirconium Cyclosilicate [Lokelma] 10 gram PO NOW STA
04/19/25 22:52
Sodium Zirconium Cyclosilicate [Lokelma] 10 gram PO NOW STA
Abnormal Lab Results
04/19/25
17:15
WBC 4.3 L 10^3/uL
(4.8-10.8)
RBC 3.78 L 10^6/uL
(4.70-6.10)
Hgb 10.3 L g/dL
(13.0-18.0)
Hct 33.3 L %
(39.0-52.0)
MCHC 30.9 L g/dL
(33.0-37.0)
RDW 16.2 H %
(11.5-14.5)
Plt Count 115 L 10^3/uL
(130-400)
Potassium 5.9 H mmol/L
(3.5-5.1)
Chloride 108 H mmol/L
(98-107)
Creatinine 1.6 H mg/dL
(0.7-1.3)
Glucose 199 H mg/dl
(70-99)
04/19/25 17:15
04/19/25 17:15
Vital Signs
Initial and Last Documented VS:
Initial Vital Signs
Temp Pulse Resp BP Pulse Ox
97.9 F 74 18 159/60 95
04/19/25 17:03 04/19/25 17:03 04/19/25 17:03 04/19/25 17:03 04/19/25 17:03
Last Documented Vital Signs
Temp Pulse Resp BP Pulse Ox
97.6 F 78 24 155/60 95
04/19/25 22:00 04/19/25 21:51 04/19/25 21:51 04/19/25 22:43 04/19/25 22:52
MDM/Problems Addressed
MDM/Problems Addressed:
Case was reviewed with nephrology, recommending tacrolimus levels be sent to the patient given 3 total doses of Lokelma starting tonight. He is asymptomatic and reasonable for discharge to home, orders written for outpatient BMP to be rechecked in
2 days
Comment
Comment:
EKG independently interpreted by me shows normal sinus rhythm with no peaked T waves and no ischemic changes
*Pulse Oximetry
SaO2: 95
Oxygen Mode of Delivery: Room air
Patient hypoxic: no
*Critical Care Note
Total Time (30-74mins, 75-104mins- exclusive of procedures): Not Applicable
ED Attending Note
-
Portions of this chart may have been created with voice recognition software.� Occasional wrong word or��sound alike� substitutions may have occurred due to the inherent limitations of voice recognition software.
Discharge Plan
Departure
Patient Disposition: Home (Routine Discharge)
Date of Disposition: 04/19/25
Time of Disposition: 22:52
Patient with high blood pressure during this ER visit?: No
Discharge Problem:
Acute hyperkalemia
Instructions: Hyperkalemia (DC)
Prescriptions:
New
Lokelma 10 gram powder in packet
10 g PO DAILY Qty: 1 0RF
No Action
dorzolamide-timolol 22.3-6.8 mg/mL Drops
1 drp LEFT EYE BID
insulin lispro [Humalog U-100 Insulin] 100 unit/mL Solution
1 sliding scale dose SC AC
rosuvastatin 20 mg Tablet
20 mg PO DAILY
Dulera 200-5 mcg/actuation Hfa Aerosol Inhaler
2 puff INHALATION R BIDPRN PRN (Reason: cough)
Eliquis 5 mg Tablet
5 mg PO BID
PreserVision AREDS-2 250-90-40-1 mg Tablet,Chewable
1 tab PO BID
tacrolimus [Prograf] 1 mg Capsule
1 mg PO Q12H Qty: 0
gabapentin 300 mg capsule
300 mg PO TID
gabapentin 600 mg Tablet
300 mg PO HSPRN PRN (Reason: mild pain)
aspirin 81 mg Tablet
81 mg PO DAILY
pantoprazole 40 mg tablet,delayed release (DR/EC)
40 mg PO DAILY Qty: 90 10RF
acetaminophen [Tylenol] 325 mg Tablet
975 mg PO DAILYPRN PRN (Reason: mild pain)
carvedilol [Coreg] 6.25 mg Tablet
6.25 mg PO BID
cetirizine [Zyrtec] 10 mg Tablet
10 mg PO DAILY
isosorbide mononitrate 30 mg Tablet Extended Release 24 Hr
30 mg PO DAILY
prednisolone acetate 1 % Drops,Suspension
3 drp LEFT EYE TID
levothyroxine [Synthroid] 50 mcg Tablet
50 mcg PO HS
zolpidem [Ambien] 10 mg Tablet
10 mg PO HSPRN PRN (Reason: sleep)
mycophenolate sodium 180 mg tablet,delayed release (DR/EC)
540 mg PO BID
insulin glargine [Lantus Solostar U-100 Insulin] 100 unit/mL (3 mL) Insulin Pen
2 unit SC HS
cyanocobalamin (vitamin B-12) 1,000 mcg capsule
1,000 mcg PO DAILY Qty: 30 0RF
Referrals:
Alphonso Sheffield MD [Family Provider, Family Practice]
Activity Restrictions/Additional Instructions:
Take 10mg Lokelma in the morning and evening tomorrow
Have your potassium level rechecked on Saturday
Follow up with your kidney specialist regarding tacrolimus levels and repeat potassium levels
Interventions
Interventions:
*Risk Screen - Suicide Last Done: 04/19/25 17:03
*General Assessment Last Done: 04/19/25 22:53
*Neglect/Abuse Screening Last Done: 04/19/25 22:53
*ED- Fall Risk Assessment Last Done: 04/19/25 22:53
*ED COVID-19 Vaccine History Last Done: 04/19/25 22:53
Discharge Date and Time
Print Language: TURKMEN
[2025-04-19] MEDS: LOKELMA 10 GRAM PO ×2 (23:28)
== END 2025-04-19 23:45 | disposition home or self-care (01) ==
LOC: EMR 17:02
PROVIDERS: Emergency Medicine; Physician Assistant; EMERGENCY PHYSICIAN Emergency Medicine; FAMILY PHYSICIAN Family Medicine
DX: E87.5 Hyperkalemia (principal); I48.91 Unspecified atrial fibrillation; E11.22 Type 2 diabetes mellitus with diabetic chronic kidney disease; N18.9 Chronic kidney disease, unspecified; I25.10 Atherosclerotic heart disease of native coronary artery without angina pectoris; E78.00 Pure hypercholesterolemia, unspecified; E03.9 Hypothyroidism, unspecified; Z79.01 Long term (current) use of anticoagulants; Z79.621 Long term (current) use of calcineurin inhibitor; Z90.49 Acquired absence of other specified parts of digestive tract; Z94.0 Kidney transplant status
CPT/HCPCS: 99283; 80053; 80197; 85025; 93005

== ENCOUNTER → 2025-04-21 12:38 | Outpatient (REF) | payer MEDICARE, OTHER, SELFPAY ==
[2025-04-21 14:34] LABS: Blood Urea Nitrogen 19 mg/dl (9-20); Calcium 9.2 mg/dl (8.4-10.2); Carbon Dioxide 24 mmol/L (22-30); Chloride 107 mmol/L (98-107); Glucose 122 mg/dl (70-99); Potassium 5.3 mmol/L (3.5-5.1); Sodium 139 mmol/L (135-145); eGFR 45.21
== END ==
LOC: REG 12:38
PROVIDERS: ATTENDING PHYSICIAN Specialist; FAMILY PHYSICIAN Family Medicine
DX: I10 Essential (primary) hypertension (principal); Z94.0 Kidney transplant status
CPT/HCPCS: 36415; 80048

== ENCOUNTER 2025-05-06 12:19 | Emergency (ER) | payer MEDICARE, OTHER, SELFPAY ==
[2025-05-06 12:26] VITALS: BP 176/70
--- NOTE | 2025-05-06 12:42 | ED.GENMED ---
History of Present Illness
General
Chief Complaint: Chest Pain
Time Seen by Provider: 05/06/25 12:42
History of Present Illness
History of Present Illness:
FOCUSED PAST MEDICAL HISTORY
- A-fib on Eliquis, CAD, high blood pressure, hyperlipidemia, IDDM, status post rhinoplasty. 2017 at [facility]
REVIEW OF OLD RECORDS
- I reviewed records, the patient was seen here approximately 2 weeks ago after the patient had outpatient labs that showed a potassium of 6.0 which was repeated in the ED that day and was 5.9. Tacrolimus level at that time was also normal at 8.9.
Note:
CHIEF COMPLAINT(S)
Chest pain
HISTORY OF PRESENT ILLNESS
The patient is a 75-year-old male with a history of coronary artery disease, presenting with a consistent pain located in a small area on the left upper part of the chest, above the nipple line. The pain, described as a pressure, radiates down the
left shoulder, particularly when the patient becomes active. The patient has a significant cardiac history, including a myocardial infarction on February 16, for which he was admitted to a cardiac unit and underwent coronary catheterization. It was
determined that two major arteries were still functioning well, so no further stenting was performed. The patient has previously undergone five coronary artery bypass grafts and four stent placements, the last of which was in 2011.
The patient reported that similar symptoms he felt during his previous myocardial infarction involved shoulder pain, which occurred over several weeks before being evaluated. The current chest pain has been constant for the past two days without
relief. The patient denies accompanying symptoms such as shortness of breath or diaphoresis. The patient did take a baby aspirin today but has not taken nitroglycerine at home.
The patient is completely blind in the left eye due to complications from cataract surgery, with a history of three surgeries leading to a detached retina roughly ten years ago. Additionally, he is concerned about having high potassium levels,
though this symptom isnt attributed to the current presentation.
PAST MEDICAL AND SURGICAL HISTORY
History of myocardial infarction (February 16), coronary artery disease, coronary artery bypass grafts (five in total), and stent placements (four, last in 2011). The patient also has a history of detached retina following cataract surgery
CHRONIC MEDICAL CONDITIONS SIGNIFICANTLY AFFECTING CARE
Coronary artery disease
Previous myocardial infarction
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
Past history of dialysis with existing fistula
MEDICATIONS
Includes aspirin and Eliquis
REVIEW OF SYSTEMS
- Cardiovascular: Reports chest pain as a pressure in the left chest, radiating to the shoulder.
- Neurological: Blind in the left eye.
PHYSICAL EXAM
General: Alert, no acute distress.
Skin: Warm, dry.
Head: Normocephalic, atraumatic.
Neck: Supple, trachea midline.
Eye, Ears, Nose, Mouth, and Throat: Patient reports blindness from the left eye, opacity of the left cornea noted, ptosis of the left eye is noted as well.
Cardiovascular: Normal peripheral perfusion, no edema. No significant chest wall tenderness. Regular rhythm
Respiratory: Respirations are non-labored. Some very faint crackles but otherwise clear
Gastrointestinal: Abdomen nondistended.
Back: Normal range of motion, normal alignment.
Musculoskeletal: Normal range of motion, normal strength.
Neurological: Alert and oriented to person, place, time, and situation. No focal neurological deficit observed.
Psychiatric: Cooperative, appropriate mood and affect.
PROBLEM LIST
Acute:
- Chest pain with radiation to shoulder
Chronic:
- Coronary artery disease
- Blindness in left eye due to surgery complications
- History of renal support
PLAN
1. Administer nitroglycerin to assess response and manage chest pain.
2. Provide a full-strength aspirin.
3. Notify the patient�s supervisor corduroy cutting, Dr. Gilmore, of symptom progression and ED visit.
4. Conduct blood work to specifically assess potassium and relevant cardiac markers.
5. Repeat electrocardiogram (EKG) and monitor for any changes.
DIFFERENTIAL DIAGNOSIS
The Differential Diagnosis includes, in no particular order and is not limited to:
1. Unstable Angina
2. Myocardial Infarction
3. Atypical Angina
4. Pulmonary Embolism
5. Costochondritis
6. Gastroesophageal Reflux Disease (GERD)
7. Aortic Dissection
8. Musculoskeletal Pain
9. Pericarditis
10. Pneumonia
EKG
- Sinus 69, left axis deviation, LVH, QRS 124 ms, no significant change from 04/19/2025
LABS
- Potassium 6.2 up from 5.9, creatinine 1.8, troponin less than 0.012
UPDATE
- DISCUSSION W/ DR. GAYTAN: 'Known to Mando here w/ 2d of left chest pressure that radiates down the LUE and worsens w/ exertion. Multiple comorbidities. CABG 20yrs ago. Coronary stent >10yrs ago. Cath'd be Frankel 02/15/25 (NSTEMI): 'likely culprit
vessel occlusion Rad-OM graft - has multiple prior stents, is ostially occluded; not candidate for revascularization'. Is on Eliquis for paroxysmal AFib. Giving NTG. Labs just sent down. Unchanged EKG.' - saw in ED and since trop neg recommended
increasing Imdur from 30mg to 60mg.
- DISCUSSION W/ DR. SALGADO: 'Came in due to chest pressure, has CAD, trop <0.012 and EKG unchanged and cardiology felt he could go home. However, his K just came back at 6.2. He is s/p renal transplant 2016 and was seen in ED 04/19/2025 w/ K of 5.3
and was discharged w/ three doses of Lokelma (but couldn't fill it and had to go to your office to get it). Today, Cr 1.8 (recent range 1.5-2.2). Bicarb 23. Has IDDM but takes low doses of insulin. Tacrolimus level was normal 04/19. I have ordered
Lokelma. No changes on EKG. HR 60s.' -We agreed patient could be discharged and I have given a 30 g dose of Lokelma. I also sent a prescription for 3 10 g doses to his pharmacy but he may end up going to Dr. Reyes's office to obtain the medication
as his pharmacy did not have it last time.
Past History
Past History
ED Past Medical History: CAD, Hypercholesterolemia, IDDM, Renal failure, Hypothyroidism and Other (Kidney transplant)
ED Past Surgical History: Appendectomy, Cardiac, Urological (Kidney transplant) and Other (Left eye surgery, AV fistula)
Social History
Tobacco: Non-smoker
Living: with family
Phy Exam
Physical Exam
Physical Exam:
See HPI
Scores
Heart Score for Chest Pain Patients
STEMI patient?: Not applicable
Course
Orders/Labs/Results
Orders:
Orders
05/06/25 12:21
EKG [Electrocardiogram (*1)] Urgent
Reason for Study: Chest Pain
EKG- Treatment ONCE
05/06/25 12:52
Aspirin 325 mg PO NOW STA
Nitroglycerin Sublingual [Nitrostat (Sublingual)] 0.4 mg SL [id number] PRN
05/06/25 13:01
Complete Blood Count/With Diff Urgent
Comprehensive Metabolic Panel Urgent
Magnesium Urgent
Troponin I Urgent
05/06/25 13:37
Consult Cardiology [CARDIOLOGY CONSULT] Urgent
Consulting Provider: Ilia Frankel
Was physician already notified: Yes
Reason for consult: cp
05/06/25 14:01
Sodium Zirconium Cyclosilicate [Lokelma] 10 gram PO NOW STA
05/06/25 14:19
Sodium Zirconium Cyclosilicate [Lokelma] 30 gram PO NOW STA
Abnormal Lab Results
05/06/25
13:01
WBC 3.2 L 10^3/uL
(4.8-10.8)
RBC 4.09 L 10^6/uL
(4.70-6.10)
Hgb 11.0 L g/dL
(13.0-18.0)
Hct 35.7 L %
(39.0-52.0)
MCH 26.9 L pg
(27.0-31.0)
MCHC 30.8 L g/dL
(33.0-37.0)
RDW 15.2 H %
(11.5-14.5)
Plt Count 102 L 10^3/uL
(130-400)
MPV 10.6 H fL
(7.4-10.4)
Potassium 6.2 H* mmol/L
(3.5-5.1)
Chloride 112 H mmol/L
(98-107)
BUN 33 H mg/dl
(9-20)
Creatinine 1.8 H mg/dL
(0.7-1.3)
Glucose 175 H mg/dl
(70-99)
AST 16 L U/L
(17-59)
05/06/25 13:01
05/06/25 13:01
Vital Signs
Initial and Last Documented VS:
Initial Vital Signs
Temp Pulse Resp BP Pulse Ox
36.5 C 69 16 176/70 100
05/06/25 12:26 05/06/25 12:26 05/06/25 12:26 05/06/25 12:26 05/06/25 12:26
Last Documented Vital Signs
Temp Pulse Resp BP Pulse Ox
36.5 C 65 14 139/57 97
05/06/25 12:26 05/06/25 13:45 05/06/25 13:45 05/06/25 13:10 05/06/25 13:45
*Pulse Oximetry
SaO2: 100
Oxygen Mode of Delivery: Room air
Patient hypoxic: no
*Critical Care Note
Total Time (30-74mins, 75-104mins- exclusive of procedures): Not Applicable
ED Attending Note
-
Portions of this chart may have been created with voice recognition software.� Occasional wrong word or��sound alike� substitutions may have occurred due to the inherent limitations of voice recognition software.
Discharge Plan
Departure
Patient Disposition: Home (Routine Discharge)
Date of Disposition: 05/06/25
Time of Disposition: 14:24
Patient with high blood pressure during this ER visit?: Yes
Discharge Problem:
Chest pain, Acute hyperkalemia
Instructions: Hyperkalemia, Chest Pain CBC Follow Up
Prescriptions:
New
isosorbide mononitrate 60 mg tablet extended release 24 hr
60 mg PO DAILY Qty: 30 0RF
Lokelma 10 gram powder in packet
10 g PO DAILY Qty: 3 0RF
No Action
dorzolamide-timolol 22.3-6.8 mg/mL Drops
1 drp LEFT EYE BID
insulin lispro [Humalog U-100 Insulin] 100 unit/mL Solution
1 sliding scale dose SC AC
rosuvastatin 20 mg Tablet
20 mg PO DAILY
PreserVision AREDS-2 250-90-40-1 mg Tablet,Chewable
1 tab PO BID
gabapentin 300 mg capsule
300 mg PO TID
aspirin 81 mg Tablet
81 mg PO DAILY
pantoprazole 40 mg tablet,delayed release (DR/EC)
40 mg PO DAILY Qty: 90 10RF
carvedilol [Coreg] 6.25 mg Tablet
6.25 mg PO BID
cetirizine [Zyrtec] 10 mg Tablet
10 mg PO DAILY
isosorbide mononitrate 30 mg Tablet Extended Release 24 Hr
30 mg PO DAILY
prednisolone acetate 1 % Drops,Suspension
3 drp LEFT EYE TID
levothyroxine [Synthroid] 50 mcg Tablet
50 mcg PO HS
zolpidem [Ambien] 10 mg Tablet
10 mg PO HSPRN PRN (Reason: sleep)
mycophenolate sodium 180 mg tablet,delayed release (DR/EC)
540 mg PO BID
insulin glargine [Lantus Solostar U-100 Insulin] 100 unit/mL (3 mL) Insulin Pen
2 unit SC HS
cyanocobalamin (vitamin B-12) 1,000 mcg capsule
1,000 mcg PO DAILY Qty: 30 0RF
tacrolimus [Prograf] 1 mg Capsule
2 mg PO Q12H
Referrals:
Alphonso Sheffield MD [Family Provider, [facility]]
Activity Restrictions/Additional Instructions:
Cardiology when she was switched from 30 mg of Imdur to 60 mg of Imdur daily. Stop the 30 mg dose and start the 60 mg dose�I sent this to your pharmacy. I spoke to Dr. Salgado. We are giving you a 30 g dose of Lokelma here and then you are to
take 10 g of Lokelma each day for the next 3 days.
Interventions
Interventions:
*Risk Screen - Suicide Last Done: 05/06/25 12:26
*Neglect/Abuse Screening Last Done: 05/06/25 12:26
ED- Cardiac Assessment Last Done: 05/06/25 13:16
Discharge Date and Time
Print Language: PASHTO
[2025-05-06 13:07] LABS: Hematocrit 35.7 % (39.0-52.0); Hemoglobin 11.0 g/dL (13.0-18.0); Mean Corp Hgb Conc. 30.8 g/dL (33.0-37.0); Mean Corpuscular Volume 87.3 fL (80.0-94.0); Nucleated Red Blood Cells % 0 % (-); Platelet Count 102 10^3/uL (130-400); Red Cell Dist. Width 15.2 % (11.5-14.5)
[2025-05-06] MEDS: NITROSTAT (SUBLINGUAL) 0.4 MG SL (13:08)
[2025-05-06] MEDS: ASPIRIN 325 MG PO (13:08)
--- NOTE | 2025-05-06 13:09 | CON.CAR ---
Consultation
Consultation Request
Date/Time Consultation Requested: 05/06/25 1300
Date/Time Consultation Performed: 05/06/25 1305
Requesting Provider: Dr. Wright
Performing Provider: Sheila TUCKER for Dr. Frankel
Reason for Consultation: chest discomfort
Medical History
-
Chief Complaint: chest discomfort
History of Present Illness:
75 y/o male (patient of Dr. Gilmore) with CAD s/p CABG 2000, then RUMA to radial artery graft 2022, which subsequently occluded 02/2025- NSTEMI, chronic, stable angina, PAF on Eliquis, HTN, HLD, renal transplant 2016, and CKD3B who is here with CP. He
started to notice it 2 days ago. It is constant- left-sided. Worse with exertion. Sometimes goes down left arm and feels sharp. Feels like he was punched. There is some tenderness to palpation. No SOB. Does not feel like his previous angina
(shoulder pain). He felt 'foggy' two days ago, but that resolved after 24 hours. Received nitro, but no resolution of pain currently. He is in no distress. Family at bedside.
Past Medical History
Past Medical History: Arrhythmias, CAD, HTN, Hypercholesterolemia, NIDDM and Other (as above)
Social History
Tobacco: Former Smoker
Personal:
Living: With Family
Family History
Family History: Reviewed & Not Pertinent
Allergies / Home Medications
Allergy/AdvReac Type Severity Reaction Status Date / Time
Penicillins Allergy Hives A Verified 05/06/25 12:27
TEENAGER
pollen extracts Allergy Nasal Verified 05/06/25 12:27
congestion
- seasonal
�Medication �Instructions �Recorded �Confirmed �Type
apixaban 5 mg tablet (Eliquis) 5 mg PO BID Blood clot 03/25/22 02/12/25 History
Held on 02/16/25. prevention/tx
Instructions: Resume on
02/17/25.
dorzolamide 22.3 mg-timolol 6.8 1 drp LEFT EYE BID Eye condition 03/25/22 02/12/25 History
mg/mL eye drops
insulin lispro 100 unit/mL 1 sliding scale dose SC AC Diabetes 03/25/22 02/12/25 History
subcutaneous solution (Humalog
U-100 Insulin)
mometasone-formoterol HFA 200 2 puff inhalation R BIDPRN PRN 03/25/22 02/12/25 History
mcg-5 mcg/actuation aerosol cough
inhaler (Dulera)
rosuvastatin 20 mg tablet 20 mg PO DAILY High cholesterol 03/25/22 02/12/25 History
vit C 250 mg-E 90 mg-zinc 40 1 tab PO BID Supplement 03/25/22 02/12/25 History
mg-copper 1 [id number] chew
tablet (PreserVision AREDS-2)
tacrolimus 1 mg capsule, 1 mg PO Q12H Transplant ##0 03/30/22 02/12/25 History
immediate-release (Prograf)
Held on 02/16/25.
Instructions: Resume on
02/17/25.
aspirin 81 mg tablet 81 mg PO DAILY Blood Clot 11/13/22 02/12/25 History
Prevention/Tx
gabapentin 300 mg capsule 300 mg PO TID NEUROPATHIC PAIN 11/13/22 02/12/25 History
gabapentin 600 mg tablet 300 mg PO HSPRN PRN mild pain 11/13/22 02/12/25 History
pantoprazole 40 mg tablet,delayed 40 mg PO DAILY #90 tabs 11/13/22 02/12/25 Rx
release
acetaminophen 325 mg tablet 975 mg PO DAILYPRN PRN mild pain 02/12/25 02/12/25 History
(Tylenol)
carvedilol 6.25 mg tablet (Coreg) 6.25 mg PO BID Blood Pressure 02/12/25 02/12/25 History
cetirizine 10 mg tablet (Zyrtec) 10 mg PO DAILY Allergies 02/12/25 02/12/25 History
insulin glargine 100 unit/mL (3 2 unit SC HS Diabetes 02/12/25 02/12/25 History
mL) subcutaneous pen (Lantus
Solostar U-100 Insulin)
isosorbide mononitrate 30 mg 30 mg PO DAILY Heart 02/12/25 02/12/25 History
tablet,extended release 24 hr Disease/Condition
levothyroxine 50 mcg tablet 50 mcg PO HS Thyroid 02/12/25 02/12/25 History
(Synthroid)
mycophenolate sodium 180 mg 540 mg PO BID Transplant 02/12/25 02/12/25 History
tablet,delayed release
prednisolone acetate 1 % eye 3 drp LEFT EYE TID Eye Condition 02/12/25 02/12/25 History
drops,suspension
zolpidem 10 mg tablet (Ambien) 10 mg PO HSPRN PRN sleep 02/12/25 02/12/25 History
cyanocobalamin (vitamin B-12) 1,000 mcg PO DAILY #30 caps 02/16/25 Rx
1,000 mcg capsule
sodium zirconium cyclosilicate 10 10 g PO DAILY #1 ea 04/19/25 Rx
gram oral powder packet (Lokelma)
Review of Systems
-
History Source: Patient
All other systems: Negative unless noted (as noted in HPI)
Cardiac: Chest Pain
Physical Exam
Vital Signs
Temp Pulse Resp BP Pulse Ox
97.7 F 65 10 176/70 100
05/06/25 12:26 05/06/25 13:00 05/06/25 13:00 05/06/25 12:26 05/06/25 13:00
Lab Results
05/06/25 13:01
Physical Exam
General: Well Developed, Well Nourished and No Apparent Distress
HEENT: Normocephalic and Anicteric
Respiratory: Clear and Non Labored Respirations
Cardiac: Regular Rhythm
Musculoskeletal: No Edema
Skin: Warm and Dry
Neuro: AO x 3
Psych: Calm
Impression / Plan
-
Chest discomfort:
-constant- noted for two days, but does worsen with exertion. Some tenderness to palpation. Different than his previous angina (shoulder discomfort).
-EKG is stable. Troponin is pending.
-If troponin normal, okay for home on increased isosorbide dosing (60 mg PO daily), and will arrange office follow-up. If abnormal, would consider relook with cath. Will await results. Discussed with Dr. Frankel and ED attenting.
CAD with hx CABG and stenting:
-severe disease as noted
-continue ASA, statin, BB, Imdur as above
-recent cath, and plan as noted
PAF:
-stable in SR
-on Coreg and Eliquis
CKD, hx renal transplant:
-renal profile pending
HTN:
-stable
-continue meds and monitor
Data Reviewed
-
EKG: Tracing Personally Visualized and interpreted (SR 69 BPM, LVH- stable from previous.)
Medical Tests (Nuc Med, Echo etc): Report Reviewed by me (cath report 02/15/25: 1. likely culprit vessel occlusion of the Rad-OM graft, otherwise unchanged anatomy from 2022 cath with patent [id number] and patent [id number]. The Rad-OM graft has
multiple prior stents, is ostially occluded, and not a candidate for re-intervention. ) and Other (echo 02/12/25 with EF 65-70%, wall motion is c/w conduction abnormality, normal RV, no sig change from echo 11/2022.)
Labs: Labs Reviewed by me (hgb 11.0- stable. Renal profile pending.)
[2025-05-06 13:10] VITALS: BP 139/57
[2025-05-06 13:39] LABS: Troponin I < 0.012 ng/ml
[2025-05-06 14:01] LABS: ALT (SGPT) 11 U/L (0-50); AST (SGOT) 16 U/L (17-59); Albumin 4.9 g/dl (3.5-5.0); Alkaline Phosphatase 65 U/L (38-126); Blood Urea Nitrogen 33 mg/dl (9-20); Calcium 9.2 mg/dl (8.4-10.2); Carbon Dioxide 23 mmol/L (22-30); Chloride 112 mmol/L (98-107); Glucose 175 mg/dl (70-99); Magnesium 2.3 mg/dl (1.6-2.3); Potassium 6.2 mmol/L (3.5-5.1); Sodium 142 mmol/L (135-145); Total Protein 7.3 g/dl (6.3-8.2); eGFR 39.25
--- NOTE | 2025-05-06 14:44 | ED.ADDNOTE ---
ED Addendum
ED Addendum
ED Addendum Note:
SUMMARY OF ENCOUNTER
The patient is a 75-year-old male with a history of coronary artery disease and previous myocardial infarction, presenting with consistent chest pain located on the left upper part of the chest. The pain radiates down the left shoulder, associated
with activity. The patient has undergone multiple cardiac interventions including coronary artery bypass grafts and stent placements. Current chest discomfort has been persistent for two days without relief. During the emergency department visit,
the pension agent was consulted, and the patients cardiac blood tests returned normal. However, the lab results indicated an elevated potassium level at 6.2, slightly higher than previous levels, prompting a discussion with a windlace machine operator about
management. The patient was informed that insulin might be used to manage high potassium levels, although typically, measures like Kayexalate might be considered if levels are not critically high. He was advised on doubling the dose of isosorbide
dinitrate (Isordil) from 30 mg to 60 mg according to cardiology recommendations. The patient reported challenges in accessing previous prescriptions for Kayexalate but discussed communication with his windlace machine operator for potential management.
ASSESSMENT
The elevated potassium level is concerning and could be contributing to his cardiac symptoms. Potential assessment includes recurrent angina potentially due to suboptimal myocardial perfusion in the context of previous coronary artery disease.
Additionally, hyperkalemia evaluation and management need to be addressed urgently given the potential cardiac implications.
PLAN
2. Double the current dose of isosorbide dinitrate from 30 mg to 60 mg as per cardiologists recommendations.
3. Continue monitoring cardiac markers and potassium levels frequently.
4. Ensure successful acquisition of the Kayexalate prescription through coordinating with the windlace machine operator.
5. Provide education on potential symptoms of worsening hyperkalemia and when to seek immediate medical attention.
INDEPENDENT REVIEW OF LABS AND INTERPRETATION OF TESTS
My independent review of the cardiac blood test is normal. My independent review of the potassium level is elevated at 6.2, higher than previous visits.
MANAGEMENT OF THE PATIENTS CARE WAS DISCUSSED WITH
A pension agent who recommended doubling the dose of isosorbide dinitrate. Discussion with a windlace machine operator regarding the management of elevated potassium levels.
MEDICATION RECONCILIATION
Prescribed doubling of isosorbide dinitrate (Isordil) to 60 mg. Kayexalte / Lokelma for hyperkalemia management.
MEDICAL DECISION MAKING
- Number and Complexity of Problems Addressed: Chronic conditions affecting care include coronary artery disease, history of myocardial infarction, and past kidney issues requiring dialysis. Differential diagnoses include unstable angina, myocardial
infarction, and electrolyte imbalance.
- Data:
- Category 1: Tests include cardiac blood tests and potassium level evaluation.
- Category 2: My independent interpretation of the cardiac blood tests is normal, and the potassium level is high at 6.2.
- Category 3: Managed care discussion with a pension agent regarding medication adjustment and a windlace machine operator about hyperkalemia management.
- Risk: Consideration of Admission/Observation: Escalation of care, including admission/observation, was considered given the potassium levels proximity to admission criteria. Ultimately, appropriate management protocols were initiated in the
emergency department, and close monitoring was ensured. The decision was reinforced by input from consulted specialists and the availability of follow-up care.
DIAGNOSIS
- Hyperkalemia (ICD-10: E87.5)
- Angina Pectoris (ICD-10: I20.9)
- Coronary Artery Disease (ICD-10: I25.10)
[2025-05-06] MEDS: KAYEXALATE SUSPENSION 30 GRAMS PO (14:57)
== END 2025-05-06 15:01 | disposition home or self-care (01) ==
LOC: EMR 12:19
PROVIDERS: CONSULT PHYSICIAN Student in an Organized Health Care Education/Training Program; EMERGENCY PHYSICIAN Emergency Medicine; FAMILY PHYSICIAN Family Medicine
DX: R07.9 Chest pain, unspecified (principal); E87.5 Hyperkalemia; E10.22 Type 1 diabetes mellitus with diabetic chronic kidney disease; I12.9 Hypertensive chronic kidney disease with stage 1 through stage 4 chronic kidney disease, or unspecified chronic kidney disease; N18.32 Chronic kidney disease, stage 3b; I25.709 Atherosclerosis of coronary artery bypass graft(s), unspecified, with unspecified angina pectoris; I48.0 Paroxysmal atrial fibrillation; E78.00 Pure hypercholesterolemia, unspecified; I25.2 Old myocardial infarction; H54.62 Unqualified visual loss, left eye, normal vision right eye; E03.9 Hypothyroidism, unspecified; Z79.01 Long term (current) use of anticoagulants; Z79.4 Long term (current) use of insulin; Z79.82 Long term (current) use of aspirin; Z94.0 Kidney transplant status; Z95.1 Presence of aortocoronary bypass graft; Z95.5 Presence of coronary angioplasty implant and graft; Z87.891 Personal history of nicotine dependence
CPT/HCPCS: 99284; 80053; 83735; 84484; 85025; 93005